=== PATIENT | female | born 1960 | race Caucasian/White ===

== ENCOUNTER → 2016-04-30 | Outpatient (CLI) | payer OTHER | LOC: WI 08:59 | PROVIDERS: ATTEND Orthopaedic Surgery | DX: Z13.820 Encounter for screening for osteoporosis (principal); M85.88 Other specified disorders of bone density and structure, other site | CPT/HCPCS: 77080 ==

== ENCOUNTER 2016-07-02 09:03 | Emergency (ER) | payer OTHER ==
[2016-07-02] MEDS ORDERED: MORPHINE SULFATE 10 MG/ML INJ IV ONE ×3 (09:39→15:13)
--- NOTE | 2016-07-02 09:39 | ER Document Report ---
ED Medical Screen (RME) - General Chief Complaint: Flank Pain Stated Complaint: FLANK PAIN Time Seen by Provider: 07/02/16 09:26 Notes: The patient is a 56-year-old female, past medical history two 10 mm stones in right kidney s/p nephrostomy tube at [facility] last month for septic stones, presents with increasing right flank pain over the past day. Continues to have yellow urine out of her nephrostomy bag. Received 5 mg oxycodone at [facility] SYSTEM ADMINISTRATION ADVISOR. PE: NAD. Nephrostomy bag with yellow urine. Right CVA tenderness. I have greeted and performed a rapid initial assessment of this patient. A comprehensive ED assessment and evaluation of the patient, analysis of test results and completion of the medical decision making process will be conducted by additional ED providers. TRAVEL OUTSIDE OF THE [place] IN LAST 30 DAYS: No - Related Data Allergies/Adverse Reactions: codeine [Codeine] Allergy (Verified 07/02/16 09:11) Nausea Past Medical History - Past Medical History Cardiac Medical History: Denies: Hx Coronary Artery Disease, Hx Heart Attack, Hx Hypertension Pulmonary Medical History: Denies: Hx Asthma, Hx Bronchitis, Hx COPD, Hx Pneumonia, Hx Tuberculosis Neurological Medical History: Reports: Hx Migraine. Denies: Hx Cerebrovascular Accident, Hx Seizures Renal/ Medical History: Denies: Hx Peritoneal Dialysis GI Medical History: Reports: Hx Gastroesophageal Reflux Disease Musculoskeltal Medical History: Reports Hx Arthritis Psychiatric Medical History: Reports: Hx Anxiety, Hx Depression Past Surgical History: Reports: Hx Orthopedic Surgery - left elbow x2. Denies: Hx Hysterectomy - Immunizations Immunizations up to date: Yes Hx Diphtheria, Pertussis, Tetanus Vaccination: Yes Physical Exam - Vital signs Vitals: Temp Pulse Resp BP Pulse Ox 98.0 F 70 18 133/54 H 98 07/02/16 09:13 07/02/16 09:13 07/02/16 09:13 07/02/16 09:13 07/02/16 09:13 Course - Vital Signs Vital signs: Temp Pulse Resp BP Pulse Ox 98.0 F 70 18 133/54 H 98 07/02/16 09:13 07/02/16 09:13 07/02/16 09:13 07/02/16 09:13 07/02/16 09:13
--- NOTE | 2016-07-02 10:30 | ER Document Report ---
ED GI/ - General Mode of Arrival: Ambulatory Information source: Patient, [facility] Records, Outside Facility Records TRAVEL OUTSIDE OF THE [place] IN LAST 30 DAYS: No - HPI Patient complains to provider of: Flank pain - Right Onset: This morning - 0230 Timing/Duration: Sudden, Worse Location: Right flank Recently seen / treated by doctor: Yes - Nina <MARCIO PATEL - Last Filed: 07/02/16 10:19> <CONI HOLLINGSWORTH - Last Filed: 07/02/16 20:43> - General Chief Complaint: Flank Pain Stated Complaint: FLANK PAIN Time Seen by Provider: 07/02/16 09:26 Notes: Patient is a 56-year-old female presenting to the emergency department with concerns of right flank pain that woke her from her sleep at 0230 this morning. Patient was recently admitted to [facility] ([place]) with a distal right ureteral stone, from which she developed pylonephritis and became septic. Patient spent one week in the ICU, and was discharged to [facility] for rehabilitation. Patient states that since arriving at [facility] three weeks ago, the staff has only changed the dressing over her nephrostomy tube one time. Patient states that this pain is very severe, but feels more towards the surface rather than deep inside her kidney. Patient states that she is going to have surgery soon, but waiting on "something with ." (MARCIO PATEL) - Related Data Allergies/Adverse Reactions: codeine [Codeine] Allergy (Verified 07/02/16 09:11) Nausea Past Medical History - General Information source: Patient, [facility] Records, Outside Facility Records - Social History Smoking Status: Current Every Day Smoker - Currently on nicotine patch secondary to staying in rehab facility [facility] Family History: Reviewed & Not Pertinent, Malignancy Patient has suicidal ideation: No Patient has homicidal ideation: No Neurological Medical History: Reports: Hx Migraine GI Medical History: Reports: Hx Gastroesophageal Reflux Disease Musculoskeltal Medical History: Reports Hx Arthritis Psychiatric Medical History: Reports: Hx Anxiety, Hx Depression Past Surgical History: Reports: Hx Orthopedic Surgery - left elbow x2, Other - Nephrostomy tube - Immunizations Immunizations up to date: Yes Hx Diphtheria, Pertussis, Tetanus Vaccination: Yes <MARCIO PATEL - Last Filed: 07/02/16 10:19> Review of Systems - Review of Systems Constitutional: No symptoms reported EENT: No symptoms reported Cardiovascular: No symptoms reported Respiratory: No symptoms reported Gastrointestinal: No symptoms reported Genitourinary: See HPI, Flank pain - Right Female Genitourinary: No symptoms reported Musculoskeletal: No symptoms reported Skin: No symptoms reported Hematologic/Lymphatic: No symptoms reported Neurological/Psychological: No symptoms reported <MARCIO PATEL - Last Filed: 07/02/16 10:19> Physical Exam - General General appearance: Alert - Tearful, uncomfortable In distress: None - HEENT Head: Normocephalic, Atraumatic Eyes: Normal Pupils: PERRL - Respiratory Respiratory status: No respiratory distress Chest status: Nontender Breath sounds: Normal Chest palpation: Normal - Cardiovascular Rhythm: Regular Heart sounds: Normal auscultation Murmur: No - Abdominal Inspection: Normal Distension: No distension Tenderness: Nontender - Back Back: Other - See skin exam - Extremities General upper extremity: Normal inspection, Nontender General lower extremity: Normal inspection, Nontender - Neurological Neuro grossly intact: Yes Cognition: Normal Orientation: AAOx4 [place] Coma Scale Eye Opening: Spontaneous Alireza Coma Scale Verbal: Oriented [place] Coma Scale Motor: Obeys Commands Alireza Coma Scale Total: 15 Speech: Normal - Psychological Associated symptoms: Normal affect, Tearful - Skin Skin Temperature: Warm Skin Moisture: Dry Skin irregularity: other - Thick, whitaker pus draining out around right nephrostomy tube. Gentle pressure resulted in a significant amount of pus flow. <MARCIO PATEL - Last Filed: 07/02/16 10:19> Course <MARCIO PATEL - Last Filed: 07/02/16 10:19> - Laboratory Result Diagrams: 07/02/16 11:22 07/02/16 11:22 - Diagnostic Test Radiology reviewed: Image reviewed, Reports reviewed - Right Perinephric abscess extending into the iliopsoas muscle. - Consults Dr. Barcenas Time consulted: 14:00 Consulted provider: other - Is requesting the hospitalist service accept the patient at [facility] and he will consult. - Transfer of Care Care transferred to following provider: Dr. Abdi <CONI HOLLINGSWORTH - Last Filed: 07/02/16 20:43> - Re-evaluation Re-evalutation: 07/02/16 15: Patient was accepted by the hospitalist service at [facility]. Presently there are no beds available. (CONI HOLLINGSWORTH) - Vital Signs Vital signs: Temp Pulse Resp BP Pulse Ox 97.8 F 53 L 16 93/52 L 100 07/02/16 18:25 07/02/16 18:25 07/02/16 18:25 07/02/16 18:25 07/02/16 18:25 - Laboratory Laboratory results interpreted by me: 07/02/16 07/02/16 07/02/16 10:57 11:22 11:22 WBC 11.7 H RBC 3.14 L Hgb 9.2 L Hct 28.1 L RDW 17.7 H Absolute Neutrophils 9.0 H Est GFR (Non-Af Amer) 55 L AST 12 L Albumin 3.2 L Urine Protein 100 H Urine Blood SMALL H Ur Leukocyte Esterase LARGE H - Transfer of Care Notes: 07/02/16 20:41 Patient is waiting on transfer to [facility]. Most recent update is that she will have a room assignment by early tomorrow afternoon. Orders for pain management, antibiotics, and diet have been put in. The patient should be considered for percutaneous drainage of her abscess here tomorrow if the transfer is going to be delayed any further than the current time provided. (CONI HOLLINGSWORTH) Discharge <MARCIO PATEL - Last Filed: 07/02/16 10:19> <CONI HOLLINGSWORTH - Last Filed: 07/02/16 20:43> - Discharge Clinical Impression: Perinephric abscess Condition: Stable Disposition: [facility] Referrals: LAURA TORRES MD [Primary Care Provider] - Follow up as needed Scribe Attestation: 07/02/16 14:47 I personally performed the services described in the documentation, reviewed and edited the documentation which was dictated to the scribe in my presence, and it accurately records my words and actions. (CONI HOLLINGSWORTH) Scribe Documentation - Scribe Written by Harithaibe:: Toño Mak, 07/02/2016 1031 acting as scribe for :: Sarah <MARCIO PATEL - Last Filed: 07/02/16 10:19>
[2016-07-02 11:29] LABS: ABSOLUTE BASOPHILS # (AUTO) 0.1 10^3/uL (0.0-0.2); ABSOLUTE EOSINOPHILS # (AUTO) 0.2 10^3/uL (0.0-0.6); ABSOLUTE LYMPHOCYTES (AUTO) 1.7 10^3/uL (0.5-4.7); ABSOLUTE MONOCYTES (AUTO) 0.7 10^3/uL (0.1-1.4); BASOPHILS % (AUTO) 0.5 % (0-2); EOSINOPHILS % (AUTO) 1.4 % (0-6); HEMATOCRIT 28.1 % (36.0-47.0); HEMOGLOBIN 9.2 g/dL (12.0-15.5); HGB HCT DIFFERENCE -0.5; LYMPHOCYTES % (AUTO) 14.9 % (13-45); MEAN CORPUSCULAR HEMOGLOBIN 29.2 pg (27.0-33.4); MEAN CORPUSCULAR HGB CONC 32.6 g/dL (32.0-36.0); MEAN CORPUSCULAR VOLUME 89 fl (80-97); MONOCYTES % (AUTO) 6.3 % (3-13); RED BLOOD COUNT 3.14 10^6/uL (3.72-5.28); RED CELL DISTRIBUTION WIDTH 17.7 % (11.5-14.0); SEGMENTED NEUTROPHILS % (AUTO) 76.9 % (42-78); WHITE BLOOD COUNT 11.7 10^3/uL (4.0-10.5)
[2016-07-02 11:46] LABS: ALANINE AMINOTRANSFERASE 20 U/L (9-52); ALBUMIN 3.2 g/dL (3.5-5.0); ALKALINE PHOSPHATASE 89 U/L (38-126); ANION GAP 8 (5-19); ASPARTATE AMINO TRANSFERASE 12 U/L (14-36); BILIRUBIN,DIRECT 0.4 mg/dL (0.0-0.4); BILIRUBIN,TOTAL 0.4 mg/dL (0.2-1.3); BLOOD UREA NITROGEN 10 mg/dL (7-20); CALCIUM 8.9 mg/dL (8.4-10.2); CARBON DIOXIDE 25 mmol/L (22-30); CHLORIDE 106 mmol/L (98-107); CREATININE RESULT 1.03 mg/dL (0.52-1.25); GLUCOSE 88 mg/dL (75-110); LIPASE 53.6 U/L (23-300); POTASSIUM 3.8 mmol/L (3.6-5.0); SODIUM 138.9 mmol/L (137-145); TOTAL PROTEIN 6.7 g/dL (6.3-8.2)
[2016-07-02] MEDS ORDERED: ERTAPENEM SODIUM INJ 1 GM VIAL IV ONE (13:19)
[2016-07-02] MEDS ORDERED: NORMAL SALINE 1000 ML 1,000 ML IV ONE (13:19)
--- NOTE | 2016-07-02 13:30 | RADIOLOGY REPORT (SQ) ---
EXAM DESCRIPTION: CT ABD/PELVIS WITH IV ONLY COMPLETED DATE/TIME: 07/02/2016 12:48 pm REASON FOR STUDY: pus drainage around the nephrostomy tube COMPARISON: 04/06/2014 TECHNIQUE: CT scan of the abdomen and pelvis performed using helical scanning technique with dynamic intravenous contrast injection. No oral contrast. Images reviewed with lung, soft tissue, and bone windows. Reconstructed coronal and sagittal MPR images reviewed. Delayed images for evaluation of the urinary system also acquired. All images stored on PACS. All CT scanners at this facility use dose modulation, iterative reconstruction, and/or weight based d osing when appropriate to reduce radiation dose to as low as reasonably achievable (ALARA). [facility]: Dose Right [facility]: CareDose [facility]: Dose Right [facility]: Teradose 4D [facility]: [employer] CONTRAST TYPE AND DOSE: 63mL Isovue 370 RENAL FUNCTION: BUN 10, creatinine 1.03 RADIATION DOSE: 10.12mGy. LIMITATIONS: None. FINDINGS: LOWER CHEST: There is minimal linear atelectasis in the lung bases. No consolidation or e ffusions. LIVER: Normal size. No masses or dilated ducts. SPLEEN: Normal size. No focal lesions. PANCREAS: No masses. No significant calcifications. No adjacent inflammation or peripancreatic fluid collections. Pancreatic duct not dilated. GALLBLADDER: Gallbladder is slightly distended. No stones or wall thickening. ADRENAL GLANDS: No significant masses or asymmetry. RIGHT KIDNEY AND URETER: There is a nephrostomy tube in the right kidney. No hydronephrosis. Ther e are small perinephric fluid collections suspicious for abscess. The largest measures 3.0 x 1.6 cm and extends into the left ileo psoas muscle. The smaller collection measures 1.7 cm 1.7 x 2.1 cm. T here calcifications in both the upper and lower pole the right kidney grossly stable from prior exam. LEFT KIDNEY AND URETER: No solid masses. There is a small simple cyst. No significant calcificatio ns. No hydronephrosis or hydroureter. AORTA AND VESSELS: No aneurysm. No dissection. Renal arteries, SMA, celiac without stenosis. RETROPERITONEUM: There are small periaortic lymph nodes. These are most likely reactive. BOWEL AND PERITONEAL CAVITY: No masses or inflammatory changes. No free fluid or peritoneal masses. APPENDIX: Normal. PELVIS: There is free fluid in the cul-de-sac. ABDOMINAL WALL: No masses. No hernias. BONES: No significant or acute findings. OTHER: No other significant finding. IMPRESSION: Inflammatory changes surrounding the right kidney suspicious for perinephric abscess. 1 extends into the right ileopsoas muscle. The largest collection measures 3.0 x 1.6 cm in diameter. Right-sided percutaneous nephrostomy tube is in place. There is no hydronephrosis. COMMENT: This report was called to CONI HOLLINGSWORTH MD at13:24 on 07/02/2016. TECHNICAL DOCUMENTATION: JOB ID: [id number] Quality ID # [id number]: Final reports with documentation of one or more dose reduction techniques (e.g., Au tomated exposure control, adjustment of the mA and/or kV according to patient size, use of iterative reconstruction technique) 2010 [employer]- All Rights Reserved
[2016-07-02 13:58] LABS: AMORPHOUS SEDIMENT,URINE TRACE /HPF; APPEARANCE,URINE TURBID; BILIRUBIN,URINE NEGATIVE (NEGATIVE); GLUCOSE, URINE NEGATIVE (NEGATIVE); KETONES,URINE NEGATIVE (NEGATIVE); LEUKOCYTE ESTERASE,URINE LARGE (NEGATIVE); NITRITE,URINE NEGATIVE (NEGATIVE); PROTEIN,URINE 100 mg/dL (NEGATIVE); URINE SPECIFIC GRAVITY 1.006; UROBILINOGEN,URINE NEGATIVE mg/dL (<2.0)
[2016-07-02] MEDS: MORPHINE SULFATE 10 MG/ML INJ IV PRN ×2 (18:05→21:16)
[2016-07-02] MEDS ORDERED: NICOTINE 21 MG/24 HR PATCH.TD24 TD ONE (19:28)
[2016-07-03] MEDS: MORPHINE SULFATE 10 MG/ML INJ IV PRN ×8 (01:11→22:44)
[2016-07-03] MEDS: NORMAL SALINE 1000 ML 1,000 ML IV PRN ×3 (03:31→21:21)
[2016-07-03] MEDS ORDERED: ALPRAZOLAM 0.5 MG TABLET PO ONE ×2 (07:25→16:34)
[2016-07-03] MEDS ORDERED: ERTAPENEM SODIUM INJ 1 GM VIAL IV ONE ×2 (13:15→13:30)
--- NOTE | 2016-07-03 20:05 | ER Document Report ---
Doctor's Note Notes: 07/03/16 20:03 Pt seen. Awaiting transport to [facility]. Requesting her home dose of Xanax. Pain under control and pt is HD stable. Will continue to monitor.
[2016-07-03] MEDS ORDERED: NICOTINE 21 MG/24 HR PATCH.TD24 TD SCH (21:30)
[2016-07-04 05:23] VITALS: BP 122/54
== END 2016-07-03 23:30 | disposition short-term general hospital (02) ==
LOC: ER 09:03
DX: N15.1 Renal and perinephric abscess (principal); R10.9 Unspecified abdominal pain; F17.200 Nicotine dependence, unspecified, uncomplicated; K21.9 Gastro-esophageal reflux disease without esophagitis; Z88.6 Allergy status to analgesic agent; Z93.6 Other artificial openings of urinary tract status; Z98.890 Other specified postprocedural states
CPT/HCPCS: 96376; 99285; 96374; 96375; 36415; 87040; 87086; 87070; 83690; 85025; 87075; 87077; 87088; 80053; 81001; 87186; 74177; J1335; J2270 ×2; J7030 ×2

== ENCOUNTER → 2016-08-01 | Outpatient (CLI) | payer OTHER ==
--- NOTE | 2016-08-01 11:58 | RADIOLOGY REPORT (SQ) ---
EXAM DESCRIPTION: CT ABD/PELVIS WITH IV ONLY COMPLETED DATE/TIME: 08/01/2016 9:51 am REASON FOR STUDY: RENAL AND PERINEPHRIC ABSCESS N15.1 RENAL AND PERINEPHRIC ABSCESS COMPARISON: CT chest 11/19/2012 Abdominal ultrasound 04/06/2014 CT abdomen pelvis 04/06/2014, 07/02/2016 Hepatobiliary scan 04/14/2014 TECHNIQUE: CT scan of the abdomen and pelvis performed using helical scanning technique with dynamic intravenous contrast injection. No oral contrast. Images reviewed with lung, soft tissue, and bone windows. Reconstructed coronal and sagittal MPR images reviewed. Delayed images for evaluation of the urinary system also acquired. All images stored on PACS. All CT scanners at this facility use dose modulation, iterative reconstruction, and/or weight based d osing when appropriate to reduce radiation dose to as low as reasonably achievable (ALARA). [facility]: Dose Right [facility]: CareDose [facility]: Dose Right [facility]: Teradose 4D [facility]: [employer] CONTRAST TYPE AND DOSE: contrast/concentration: Isovue 370.00 mg/ml; Total Contrast Delivered: 58.0 ml; Total Saline Delivered: 65.0 ml RENAL FUNCTION: Creatinine 1.0 RADIATION DOSE: Up-to-date CT equipment and radiation dose reduction techniques were employed. CTDIv ol: 3.3 - 3.9 mGy. DLP: 330 mGy-cm.. LIMITATIONS: None. FINDINGS: LOWER CHEST: No significant findings. No nodules or infiltrates. LIVER: Normal size. No masses or dilated ducts. SPLEEN: Normal size. No focal lesions. PANCREAS: No masses. No significant calcifications. No adjacent inflammation or peripancreatic fluid collections. Pancreatic duct not dilated. GALLBLADDER: No identified stones by CT criteria. No inflammatory changes to suggest cholecystitis. ADRENAL GLANDS: No significant masses or asymmetry. RIGHT KIDNEY AND URETER: Diffusely small right kidney with cortical thinning, overall 7.6 cm in linda th. No solid masses. Coarse dense benign appearing 12 mm calcification right upper pole kidney unc hanged. Stable right lower pole 7 to 8 mm intrarenal nonobstructive stone No hydronephrosis or hyd roureter. Right-sided double-J stent in good positioning. LEFT KIDNEY AND URETER: No solid masses. No significant calcifications. No hydronephrosis or hydr oureter. AORTA AND VESSELS: No aneurysm. No dissection. Renal arteries, SMA, celiac without stenosis. RETROPERITONEUM: No retroperitoneal adenopathy, hemorrhage or masses. BOWEL AND PERITONEAL CAVITY: No masses or inflammatory changes. No free fluid or peritoneal masses. Large amount of stool in the ascending and transverse colon APPENDIX: Normal. PELVIS: No mass or free fluid. Normal bladder. Post hysterectomy. Streak artifact through the pelvi s from right hip replacement ABDOMINAL WALL: No masses. No hernias. BONES: Right total hip replacement OTHER: No other significant finding. IMPRESSION: No CT evidence of right perinephric abscess or intrarenal abscess. Small right kidney, with right double-J stent in good positioning and stable calcifications in the right upper and lower pole kidney. TECHNICAL DOCUMENTATION: JOB ID: [id number] Quality ID # [id number]: Final reports with documentation of one or more dose reduction techniques (e.g., Au tomated exposure control, adjustment of the mA and/or kV according to patient size, use of iterative reconstruction technique) 2010 [employer]- All Rights Reserved
== END ==
LOC: RAD 09:19
PROVIDERS: ATTEND Physician Assistant
DX: N15.1 Renal and perinephric abscess (principal)
CPT/HCPCS: 74177; J1642

== ENCOUNTER 2016-10-15 08:05 | Emergency (ER) | payer OTHER ==
[2016-10-15 08:11] VITALS: BP 134/74
--- NOTE | 2016-10-15 08:51 | ER Document Report ---
HPI - HPI Pain Level: 4 Notes: Patient is a 56-year-old female who presents the ED complaining of acute on chronic left shoulder pain status post injury while working out 3 days ago. Patient states that the pain stays in the shoulder and does not radiate. The pain is described as sharp. Patient states that she did have a fracture to the left shoulder, but "did not get it fixed because a surgeon did not want to work on her as she is a smoker." Patient states that she did have typical range of motion and was working out when she felt the pain started. Patient now has difficulties with flexion and abduction. Patient states that her arm feels a little weak as well. She has not had any neck pain. She still eating and drinking without any difficulties. Patient has been using ibuprofen with minimal relief. Denies any headache, fever, head injury, neck pain, URI, sore throat, chest pain, palpitations, syncope, cough, shortness of breath, wheeze, dyspnea, abdominal pain, nausea/vomiting/diarrhea, urinary retention, dysuria, hematuria, numbness/tingling, or rash. - ROS Notes: REVIEW OF SYSTEMS: CONSTITUTIONAL : Denies fever, chills, or sweats. Denies recent illness. EENT: Denies eye, ear, throat, or mouth pain or symptoms. Denies nasal or sinus congestion or discharge. Denies throat, tongue, or mouth swelling or difficulty swallowing. CARDIOVASCULAR: Denies chest pain. Denies palpitations or racing or irregular heart beat. Denies ankle edema. RESPIRATORY: Denies cough, cold, or chest congestion. Denies shortness of breath, difficulty breathing, or wheezing. GASTROINTESTINAL: Denies abdominal pain or distention. Denies nausea, vomiting , or diarrhea. Denies blood in vomitus, stools, or per rectum. Denies black, tarry stools. Denies constipation. GENITOURINARY: Denies difficulty urinating, painful urination, burning, frequency, blood in urine, or discharge. MUSCULOSKELETAL: see hpi SKIN: Denies rash, lesions or sores. NEUROLOGICAL: Denies confusion or altered mental status. Denies passing out or loss of consciousness. Denies dizziness or lightheadedness. Denies headache. Denies weakness or paralysis or loss of use of either side. Denies problems with gait or speech. Denies sensory loss, numbness, or tingling. ALL OTHER SYSTEMS REVIEWED AND NEGATIVE. Dictation was performed using [employer] voice recognition software - CARDIOVASCULAR Cardiovascular: DENIES: Chest pain - REPRODUCTIVE Reproductive: DENIES: : - DERM Skin Color: Normal Past Medical History - Social History Smoking Status: Current Every Day Smoker Chew tobacco use (# tins/day): No Frequency of alcohol use: None Drug Abuse: None Family History: Reviewed & Not Pertinent, Malignancy Patient has suicidal ideation: No Patient has homicidal ideation: No - Past Medical History Cardiac Medical History: Denies: Hx Coronary Artery Disease, Hx Heart Attack, Hx Hypertension Pulmonary Medical History: Denies: Hx Asthma, Hx Bronchitis, Hx COPD, Hx Pneumonia, Hx Tuberculosis Neurological Medical History: Reports: Hx Migraine. Denies: Hx Cerebrovascular Accident, Hx Seizures Renal/ Medical History: Denies: Hx Peritoneal Dialysis GI Medical History: Reports: Hx Gastroesophageal Reflux Disease Musculoskeltal Medical History: Reports Hx Arthritis Psychiatric Medical History: Reports: Hx Anxiety, Hx Depression Past Surgical History: Reports: Hx Orthopedic Surgery - left elbow x2, Other - Nephrostomy tube. Denies: Hx Hysterectomy - Immunizations Immunizations up to date: Yes Hx Diphtheria, Pertussis, Tetanus Vaccination: Yes Vertical Provider Document - CONSTITUTIONAL Agree With Documented VS: Yes Notes: PHYSICAL EXAMINATION: GENERAL: Well-appearing, well-nourished and in no acute distress. HEAD: Atraumatic, normocephalic. NECK: Normal range of motion, supple without lymphadenopathy. Non-tender. No rigidity. LUNGS: Breath sounds clear to auscultation bilaterally and equal. No wheezes rales or rhonchi. HEART: Regular rate and rhythm without murmurs, rubs, gallops. Musculoskeletal: Lt shoulder: FROM to passive. LROM to active. Strength 4+/5. Pt unable to abduct/flex on her on. + deformity noted to what looks like the clavicle (consistent w. history). + tenderness to the shoulder. N/v intact distal. Pulse 2+. No obvious ecchymosis, abrasion, laceration, or swelling noted. Extremities: No cyanosis, clubbing, or edema b/l. Peripheral pulses 2+. Capillary refill less than 3 seconds. NEUROLOGICAL: Normal speech, normal gait. Normal sensory, motor exams PSYCH: Normal mood, normal affect. SKIN: Warm, Dry, normal turgor, no rashes or lesions noted. - INFECTION CONTROL TRAVEL OUTSIDE OF THE [place] IN LAST 30 DAYS: No - RESPIRATORY O2 Sat by Pulse Oximetry: 96 Course - Re-evaluation Re-evalutation: 10/15/16 09:38 Patient is an afebrile, well-hydrated, 56-year-old female who presents the ED with left shoulder pain, suspect sprain/strain based on H&P today. Vitals are stable. PE otherwise unremarkable. XR unremarkable for acute pathology. Low suspicion/risk for any tendon rupture, neurovascular compromise, septic joint, sepsis, meningitis, disc herniation causing severe spinal stenosis, or acute fracture. Patient is aware that her condition can change from initial presentation and she needs to monitor symptoms closely and seek medical attention if any acute changes. Patient requesting narcotics. Advised that narcotics are not warranted for her current condition. I offered Toradol, ice/ heat, Tylenol/ibuprofen. Patient declined and walked out AMA with risks/ benefits understood. I was planning on sending her home with a sling, the patient left prematurely. I did tell the patient that she needs to recheck with her PCM and orthopedics f or further evaluation if there is no acute emergent pathology today. Patient is to return with any worsening/concerning symptoms otherwise as reviewed. - Vital Signs Vital signs: Temp Pulse Resp BP Pulse Ox 97.7 F 83 18 134/74 H 96 10/15/16 08:08 10/15/16 08:08 10/15/16 08:08 10/15/16 08:08 10/15/16 08:08 Discharge - Discharge Clinical Impression: Left shoulder pain Qualifiers: Chronicity: acute Qualified Code(s): M25.512 - Pain in left shoulder Condition: Stable Disposition: [facility] Instructions: Ice & Elevation ([facility]), Exercise Program for the Shoulder ([facility]), Shoulder Injury ([facility]), Sling as Treatment ([facility]), Warm Packs ([facility]) Additional Instructions: Rest, Ice, Compression, Elevation Use sling as directed Tylenol/ibuprofen as needed Light stretches daily Strength exercises as able Moist heat and massage may help F/u with your PCP in 2-3 days for a recheck Consider consult(s) with Orthopedics/physical therapy for ongoing/worsening symptoms Return to the ED with any worsening symptoms and/or development of fever, headache, chest pain, palpitations, syncope, shortness of breath, trouble breathing, abdominal pain, n/v/d, muscle weakness/paralysis, numbness/tingling, swelling, redness, or other worsening symptoms that are concerning to you. Forms: Elevated Blood Pressure, Smoking Cessation Education Referrals: [facility] [Provider Group] - Follow up as needed
--- NOTE | 2016-10-15 09:34 | RADIOLOGY REPORT (SQ) ---
EXAM DESCRIPTION: SHOULDER LEFT 2 OR MORE VIEWS COMPLETED DATE/TIME: 10/15/2016 9:25 am REASON FOR STUDY: left shoulder pain, h/o prev fracture COMPARISON: None. NUMBER OF VIEWS: Three views. TECHNIQUE: Internal rotation, external rotation, and Y view images acquired of the left shoulder. LIMITATIONS: None. FINDINGS: MINERALIZATION: Normal. BONES: There is a moderately displaced ununited left distal clavicle fracture compatible with history of prior fracture. Bones otherwise intact without acute injury identified. JOINTS: No dislocation. VISUALIZED LUNGS AND RIBS: No pneumothorax. No rib fracture. SOFT TISSUES: No radiopaque foreign body. OTHER: No other significant finding. IMPRESSION: CHRONIC UNUNITED LEFT DISTAL CLAVICLE FRACTURE ABOVE. NO ACUTE FINDINGS. TECHNICAL DOCUMENTATION: JOB ID: [id number] [employer]- All Rights Reserved
== END 2016-10-15 09:30 | disposition left against medical advice (07) ==
LOC: ER 08:05
DX: M25.512 Pain in left shoulder (principal); R53.1 Weakness; F17.200 Nicotine dependence, unspecified, uncomplicated; Z53.29 Procedure and treatment not carried out because of patient's decision for other reasons
CPT/HCPCS: 99283

== ENCOUNTER → 2016-11-14 | Outpatient (CLI) | payer OTHER ==
--- NOTE | 2016-11-15 09:55 | RADIOLOGY REPORT (SQ) ---
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 TECHNIQUE: Dynamic and static felipe-scale images acquired of the thyroid gland. Selected additional c olor/power Doppler images recorded. All images stored to PACS. LIMITATIONS: None. FINDINGS: Right lobe thyroid is 4.5 x 2.0 x 1.4 cm in size. Homogeneous echogenicity. Normal color flow. Incidental finding of an 8 mm an 11 mm nodule in the right lobe thyroid which should be follo wed with repeat ultrasound in 12 months. Left lobe thyroid is 4.4 x 2.1 x 1.9 cm in size. Incidental finding of a 3 mm nodule in the left mid pole thyroid which should be followed with ultrasound in 12 months. Normal thyroid isthmus thickness, 2 mm in thickness. IMPRESSION: Less than 1.5 cm bilateral thyroid nodules which are probably benign, 1 year follow-up r ecommended. TECHNICAL DOCUMENTATION: JOB ID: [id number] [employer]- All Rights Reserved
== END ==
LOC: RAD 16:33
PROVIDERS: ATTEND Family Medicine
DX: E01.0 Iodine-deficiency related diffuse (endemic) goiter (principal)
CPT/HCPCS: 76536

== ENCOUNTER → 2016-11-20 | Outpatient (CLI) | payer OTHER ==
--- NOTE | 2016-11-20 17:13 | WOMENS IMAGING REPORT ---
EXAM DESCRIPTION: BILAT SCREENING MAMMO W/CAD COMPLETED DATE/TIME: 11/20/2016 2:52 pm REASON FOR STUDY: ROUTINE SCREENING; Z12.31 Z12.31 ENCNTR SCREEN MAMMOGRAM FOR MALIGNANT NEOPLASM O F JESSICA COMPARISON: 2009 to 2015 TECHNIQUE: Standard craniocaudal and mediolateral oblique views of each breast recorded using CAISa l acquisition. LIMITATIONS: None. FINDINGS: RIGHT BREAST MASSES: No suspicious masses. CALCIFICATIONS: No new or suspicious calcifications. ARCHITECTURAL DISTORTION: None. DEVELOPING DENSITY: None. ASYMMETRY: None noted. OTHER: No other significant findings. LEFT BREAST MASSES: Mass in the left breast measuring 8 mm slightly irregular superior and either medial or later al as there are 2 densities in the breast on the CC view which could represent a mass. CALCIFICATIONS: No new or suspicious calcifications. ARCHITECTURAL DISTORTION: None. DEVELOPING DENSITY: None. ASYMMETRY: None noted. OTHER: No other significant findings. Read with the assistance of CAD. .[facility] - R2 Cenova Version 1.3 .[facility] Imaging - R2 Cenova Version 1.3 .[facility] Imaging - R2 Cenova Version 2.4 .[facility] - R2 Cenova Version 2.4 .[facility] - R2 Pants Presser Version 9.2 IMPRESSION: New mass in the left breast BREAST DENSITY: c. The breasts are heterogeneously dense, which may obscure small masses. BIRAD: 0 Incomplete: Needs Additional Imaging Evaluation and/or prior Mammograms for Comparison. RECOMMENDATION: RECOMMENDED FOLLOW-UP: Spot compression and ultrasound. The patient will be contacted for additional imaging. COMMENT: The patient has been notified of the results by letter per SA requirements. Additional no tification policies are in place for contacting patient with suspicious or incomplete findings. Quality ID #225: The [employer] recommends an annual screening mammogram for women aged 40 years or over. This facility utilizes a reminder system to ensure that all patients receive reminder letters, and/or direct phone calls for appointments. This includes reminders for routine scr eening mammograms, diagnostic mammograms, or other Breast Imaging Interventions when appropriate. Th is patient will be placed in the appropriate reminder system. The [employer] (ACR) has developed recommendations for screening MRI of the breast s in certain patient populations, to be used in conjunction with mammography. Breast MRI surveillanc e may be appropriate for women with more than 20% lifetime risk of developing breast cancer as deter mined by genetic testing, significant family history of the disease, or history of mantle radiation f or Hodgkins Disease. ACR Practice Guidelines 2008. TECHNICAL DOCUMENTATION: FINDING NUMBER: (1) ASSESSMENT: (1) JOB ID: [id number] [employer]- All Rights Reserved
== END ==
LOC: WI 14:18
PROVIDERS: ATTEND Family Medicine
DX: Z12.31 Encounter for screening mammogram for malignant neoplasm of breast (principal)
CPT/HCPCS: 77067; G0202

== ENCOUNTER → 2017-01-21 | Outpatient (CLI) | payer OTHER ==
--- NOTE | 2017-01-21 19:09 | WOMENS IMAGING REPORT ---
EXAM DESCRIPTION: U/S BREAST UNILAT LIMITED COMPLETED DATE/TIME: 01/21/2017 12:59 pm REASON FOR STUDY: ABSCESS OF R BREAST; N61.1 N61.1 ABSCESS OF THE BREAST AND NIPPLE COMPARISON: Bilateral mammograms 11/20/2016, 09/20/2015 Right breast ultrasound 09/20/2015 TECHNIQUE: Real-time and static grayscale imaging performed of the right breast targeted to the area of clinical concern. Selected color Doppler images recorded. LIMITATIONS: None. FINDINGS: MASS: No mass identified. Normal glandular tissue. OTHER: No other significant finding. No abscess or focal fluid collection. IMPRESSION: No suspicious findings detected by ultrasound. BIRAD: 1 Negative. RECOMMENDATION: RECOMMENDED FOLLOW-UP: Follow-up as clinically indicated. COMMENT: The [employer] (ACR) has developed recommendations for screening MRI of the breasts in certain patient populations, to be used in conjunction with mammography. Breast MRI s urveillance may be appropriate for women with more than 20% lifetime risk of developing breast cancer as determined by genetic testing, significant family history of the disease, or history of mantle r adiation for Hodgkins Disease. ACR Practice Guidelines 2008. TECHNICAL DOCUMENTATION: JOB ID: [id number] [employer]- All Rights Reserved
== END ==
LOC: WI 10:43
PROVIDERS: ATTEND Family Medicine
DX: N61.1 Abscess of the breast and nipple (principal)
CPT/HCPCS: 76642

== ENCOUNTER → 2017-12-26 | Outpatient (CLI) | payer OTHER ==
--- NOTE | 2017-12-26 14:29 | WOMENS IMAGING REPORT ---
EXAM DESCRIPTION: BILAT DIAGNOSTIC MAMMO W/CAD COMPLETED DATE/TIME: 12/26/2017 8:20 am REASON FOR STUDY: BREAST LUMP N63.0 UNSPECIFIED LUMP IN UNSPECIFIED BREAST COMPARISON: Multiple since 2009 TECHNIQUE: Standard craniocaudal and mediolateral oblique views of each breast recorded using digita l acquisition. Additional bilateral 90 mediolateral views were obtained. LIMITATIONS: None. FINDINGS: RIGHT BREAST MASSES: No suspicious masses. CALCIFICATIONS: No new or suspicious calcifications. Stable benign breast calcifications. ARCHITECTURAL DISTORTION: None. DEVELOPING DENSITY: None. ASYMMETRY: None noted. OTHER: No other significant findings. LEFT BREAST MASSES: No suspicious masses. CALCIFICATIONS: No new or suspicious calcifications. Stable benign breast calcifications. ARCHITECTURAL DISTORTION: None. DEVELOPING DENSITY: None. ASYMMETRY: None noted. OTHER: No other significant finding. Read with the assistance of CAD: .[facility] - R2 Cenova Version 1.3 .[facility] Imaging - R2 Cenova Version 1.3 .[facility] Imaging - R2 Cenova Version 2.4 .[facility] - R2 Cenova Version 2.4 .[facility] - R2 Backend Python Developer Version 9.2 IMPRESSION: No mammographic evidence for malignancy bilaterally BREAST DENSITY: c. The breasts are heterogeneously dense, which may obscure small masses. BIRAD: 2 Benign findings. RECOMMENDATION: RECOMMENDED FOLLOW UP: Please continue yearly bilateral screening mammography/ tomos ynthesis in December 2018 SPECIFIC INTERVENTION/IMAGING/CONSULTATION RECOMMENDED:No additional intervention/ imaging/consultati on needed at this time. COMMUNICATION:Patient notified by letter COMMENT: The patient has been notified of the results by letter per SA requirements. Additional no tification policies are in place for contacting patient with suspicious or incomplete findings. Quality ID #[id number]: The [employer] recommends an annual screening mammogram for women aged 40 years or over. This facility utilizes a reminder system to ensure that all patients receive reminder letters, and/or direct phone calls for appointments. This includes reminders for routine scr eening mammograms, diagnostic mammograms, or other Breast Imaging Interventions when appropriate. Th is patient will be placed in the appropriate reminder system. The [employer] (ACR) has developed recommendations for screening MRI of the breast s in certain patient populations, to be used in conjunction with mammography. Breast MRI surveillanc e may be appropriate for women with more than 20% lifetime risk of developing breast cancer as deter mined by genetic testing, significant family history of the disease, or history of mantle radiation f or Hodgkins Disease. ACR Practice Guidelines 2008. TECHNICAL DOCUMENTATION: FINDING NUMBER: (1) ASSESSMENT: (1) JOB ID: [id number] [employer]- All Rights Reserved Reading location - IP/workstation name: [facility]
== END ==
LOC: WI 07:32
PROVIDERS: ATTEND Family Medicine
DX: N63.0 Unspecified lump in unspecified breast (principal)
CPT/HCPCS: 77066

== ENCOUNTER → 2018-03-18 | Outpatient (CLI) | payer OTHER ==
--- NOTE | 2018-03-20 15:09 | WOMENS IMAGING REPORT ---
EXAM DESCRIPTION: U/S BREAST UNILAT LIMITED; RIGHT DIAGNOSTIC MAMMO W/CAD COMPLETED DATE/TIME: 03/18/2018 10:44 am; 03/18/2018 10:07 am REASON FOR STUDY: RT BREAST ABSCESS N61.1; N61.1 ABSCESS OF THE BREAST AND NIPPLE N61.1 ABSCESS OF THE BREAST AND NIPPLE COMPARISON: Multiple previous mammograms, most recently 12/26/2017 Right breast ultrasound 01/21/2017 TECHNIQUE: Right breast craniocaudad, 90 mediolateral view and MLO view, right breast ultrasound we re performed today for an inverted right nipple LIMITATIONS: None. FINDINGS: RIGHT BREAST MASSES: No suspicious masses. CALCIFICATIONS: No new or suspicious calcifications. ARCHITECTURAL DISTORTION: None. DEVELOPING DENSITY: None. ASYMMETRY: None noted. OTHER: No other significant findings. Right breast ultrasound: Ultrasound of the right breast. Retroareolar region was performed. Within the skin of the right nip ple, 12 o'clock position immediately deep to the skin surface a 5 mm hypoechoic nodule is present lik yo a dermal inclusion cyst. No increased color flow. No worrisome acoustic absorption. No dilated ducts in the retroareolar region. No solid masses. No worrisome acoustic absorption. IMPRESSION: No mammographic or sonographic evidence for malignancy right breast. 5 mm hypoechoic lesion in the skin, likely a dermal inclusion cyst BREAST DENSITY: b. There are scattered areas of fibroglandular density. BIRAD: 2 Benign findings. RECOMMENDATION: RECOMMENDED FOLLOW UP: Clinical follow-up for skin lesion. Otherwise, patient is du e for bilateral screening mammography in December 2018 SPECIFIC INTERVENTION/IMAGING/CONSULTATION RECOMMENDED:Clinical followup for skin lesion COMMUNICATION:The negative/benign results were communicated to the patient. COMMENT: The patient has been notified of the results by letter per MQSA requirements. Additional no tification policies are in place for contacting patient with suspicious or incomplete findings. Quality ID #[id number]: The [employer] recommends an annual screening mammogram for women aged 40 years or over. This facility utilizes a reminder system to ensure that all patients receive reminder letters, and/or direct phone calls for appointments. This includes reminders for routine scr eening mammograms, diagnostic mammograms, or other Breast Imaging Interventions when appropriate. Th is patient will be placed in the appropriate reminder system. The [employer] (ACR) has developed recommendations for screening MRI of the breast s in certain patient populations, to be used in conjunction with mammography. Breast MRI surveillanc e may be appropriate for women with more than 20% lifetime risk of developing breast cancer as deter mined by genetic testing, significant family history of the disease, or history of mantle radiation f or Hodgkins Disease. ACR Practice Guidelines 2008. TECHNICAL DOCUMENTATION: FINDING NUMBER: (1) ASSESSMENT: (1) JOB ID: [id number] [employer]- All Rights Reserved Reading location - IP/workstation name: BE[facility]
== END ==
LOC: WI 09:31
PROVIDERS: ATTEND Family Medicine
DX: N61.1 Abscess of the breast and nipple (principal); N60.01 Solitary cyst of right breast
CPT/HCPCS: 76642

== ENCOUNTER 2018-06-24 08:27 | Emergency (ER) | payer OTHER ==
--- NOTE | 2018-06-24 09:50 | ER Document Report ---
ED General - General Chief Complaint: Post Surgical Pain Stated Complaint: POST OP PAIN Time Seen by Provider: 06/24/18 09:49 Primary Care Provider: LAURA TORRES MD [Primary Care Provider] - Follow up as needed TRAVEL OUTSIDE OF THE [place] IN LAST 30 DAYS: No - HPI Notes: Right breast pain 4/10 burning in nature without radiation nothing makes it better or worse. Patient had an abscess drained from her right breast approximately 10 days ago. Patient states her surgeon only gave her 10 pain pills 1 to take each day. She says this is not enough. She has multiple allergies to multiple pain medications can only tolerate Fioricet. This also helps her chronic migraines. Patient denies fever chills lymphadenopathy weakness or fatigue. - Related Data Allergies/Adverse Reactions: codeine [Codeine] Allergy (Verified 06/24/18 08:29) Nausea, Emesis Past Medical History - Social History Smoking Status: Current Every Day Smoker Chew tobacco use (# tins/day): No Frequency of alcohol use: None Drug Abuse: None Family History: Reviewed & Not Pertinent, Malignancy Patient has suicidal ideation: No Patient has homicidal ideation: No - Past Medical History Cardiac Medical History: Denies: Hx Coronary Artery Disease, Hx Heart Attack, Hx Hypertension Pulmonary Medical History: Denies: Hx Asthma, Hx Bronchitis, Hx COPD, Hx Pneumonia, Hx Tuberculosis Neurological Medical History: Reports: Hx Migraine. Denies: Hx Cerebrovascular Accident, Hx Seizures Renal/ Medical History: Denies: Hx Peritoneal Dialysis GI Medical History: Reports: Hx Gastroesophageal Reflux Disease Musculoskeletal Medical History: Denies Hx Arthritis Psychiatric Medical History: Reports: Hx Anxiety, Hx Depression Past Surgical History: Reports: Hx Orthopedic Surgery - left elbow x2, Right hip replacement, Other - Nephrostomy tube. Denies: Hx Hysterectomy - Immunizations Immunizations up to date: Yes Hx Diphtheria, Pertussis, Tetanus Vaccination: Yes Review of Systems - Review of Systems Notes: REVIEW OF SYSTEMS: CONSTITUTIONAL: -fevers, -chills EENT: -eye pain, -difficulty swallowing, -nasal congestion CARDIOVASCULAR: -chest pain, -syncope. RESPIRATORY: -cough, -SOB GASTROINTESTINAL: -abdominal pain, -nausea, -vomiting, -diarrhea GENITOURINARY: -dysuria, -hematuria MUSCULOSKELETAL: -back pain, -neck pain SKIN: -rash or skin lesions. HEMATOLOGIC: -easy bruising or bleeding. LYMPHATIC: -swollen, enlarged glands. NEUROLOGICAL: -altered mental status or loss of consciousness, -headache, - neurologic symptoms PSYCHIATRIC: -anxiety, -depression. ALL OTHER SYSTEMS REVIEWED AND NEGATIVE. Physical Exam - Vital signs Vitals: Temp Pulse Resp BP Pulse Ox 98.9 F 86 18 138/73 H 98 06/24/18 08:43 06/24/18 08:43 06/24/18 08:43 06/24/18 08:43 06/24/18 08:43 - Notes Notes: PHYSICAL EXAMINATION: GENERAL: Well-appearing, well-nourished and in no acute distress. HEAD: Atraumatic, normocephalic. EYES: Pupils equal round and reactive to light, extraocular movements intact, sclera anicteric, conjunctiva are normal. ENT: nares patent, oropharynx clear without exudates. Moist mucous membranes. NECK: Normal range of motion, supple without lymphadenopathy LUNGS: Breath sounds clear to auscultation bilaterally and equal. No wheezes rales or rhonchi. HEART: Regular rate and rhythm without murmurs ABDOMEN: Soft, nontender, normoactive bowel sounds. No guarding, no rebound. No masses appreciated. EXTREMITIES: Normal range of motion, no pitting or edema. No cyanosis. NEUROLOGICAL: Cranial nerves grossly intact. Normal speech, normal gait. Normal sensory and motor exams. PSYCH: Normal mood, normal affect. SKIN: Recent incision site in the 12 o'clock position of right area Aura, no fluctuance noted area of redness is probably 1 cm once in the past no lymphadenopathy. Relatively benign exam Course - Re-evaluation Re-evalutation: 06/24/18 10:03 Patient has been in the department approximately 1 hour. She states she is going to leave. She only came for pain medicine. Afebrile female stable vitals within normal limits. Will initiate antibiotic therapy of Bactrim we will give short course pain medication recommend follow-up at surgeon. 06/24/18 10:04 Patient not willing to stay for blood work or additional evaluation - Vital Signs Vital signs: Temp Pulse Resp BP Pulse Ox 98.9 F 86 18 138/73 H 98 06/24/18 08:43 06/24/18 08:43 06/24/18 08:43 06/24/18 08:43 06/24/18 08:43 Discharge - Discharge Clinical Impression: Breast pain, right Condition: Stable Disposition: HOME, SELF-CARE Instructions: Cellulitis ([facility]) Additional Instructions: Call Surgeon who did your breast surgery Prescriptions: Butalb/Acetaminophen/Caffeine [Fioricet (50-325-40 mg) Tablet] 1 - 2 tab PO Q4H #20 tab Sulfamethoxazole/Trimethoprim [Bactrim 400-80 mg Tablet] 1 each PO BID #14 tablet Referrals: LAURA TORRES MD [Primary Care Provider] - Follow up as needed
[2018-06-24 10:15] VITALS: BP 134/77
== END 2018-06-24 10:15 | disposition home or self-care (01) ==
LOC: ER 08:27
DX: N64.4 Mastodynia (principal); G89.18 Other acute postprocedural pain; F17.200 Nicotine dependence, unspecified, uncomplicated; Z88.6 Allergy status to analgesic agent; Z96.641 Presence of right artificial hip joint
CPT/HCPCS: 99283

== ENCOUNTER 2019-02-02 10:55 | Emergency (ER) | payer OTHER ==
[2019-02-02] MEDS ORDERED: KETOROLAC TROMETHAMINE INJ/PF 30 MG/1 ML SDV IV ONE (11:04)
[2019-02-02] MEDS ORDERED: ONDANSETRON HCL INJ/PF 4 MG/2 ML SDV IV ONE (11:05)
--- NOTE | 2019-02-02 11:05 | ER Document Report ---
ED Medical Screen (RME) - General Chief Complaint: Flank Pain Stated Complaint: RIGHT FLANK PAIN Time Seen by Provider: 02/02/19 10:59 Primary Care Provider: LAURA TORRES MD [Primary Care Provider] - Follow up as needed Mode of Arrival: Ambulatory Information source: Patient Notes: Patient presents complaining of right low back pain for the past week. Patient states she has been voiding only very small amounts. Patient denies any fever but does complain of some nausea and vomiting. Patient does have a history of kidney stones with stenting. I have greeted and performed a rapid initial assessment of this patient. A comprehensive ED assessment and evaluation of the patient, analysis of test results and completion of the medical decision making process will be conducted by additional ED providers. TRAVEL OUTSIDE OF THE [place] IN LAST 30 DAYS: No - Related Data Allergies/Adverse Reactions: codeine [Codeine] Allergy (Verified 02/02/19 10:59) Nausea, Emesis Home Medications: Xanax Past Medical History - Past Medical History Cardiac Medical History: Denies: Hx Coronary Artery Disease, Hx Heart Attack, Hx Hypertension Pulmonary Medical History: Denies: Hx Asthma, Hx Bronchitis, Hx COPD, Hx Pneumonia, Hx Tuberculosis Neurological Medical History: Reports: Hx Migraine. Denies: Hx Cerebrovascular Accident, Hx Seizures Renal/ Medical History: Denies: Hx Peritoneal Dialysis GI Medical History: Reports: Hx Gastroesophageal Reflux Disease Musculoskeltal Medical History: Denies Hx Arthritis Psychiatric Medical History: Reports: Hx Anxiety, Hx Depression Past Surgical History: Reports: Hx Orthopedic Surgery - left elbow x2, Right hip replacement, Other - Nephrostomy tube. Denies: Hx Hysterectomy - Immunizations Immunizations up to date: Yes Hx Diphtheria, Pertussis, Tetanus Vaccination: Yes Physical Exam - Vital signs Vitals: Temp Pulse Resp BP Pulse Ox 97.5 F 96 18 148/77 H 96 02/02/19 11:00 02/02/19 11:00 02/02/19 11:00 02/02/19 11:00 02/02/19 11:00 - Back Back: CVA tenderness - Right Course - Vital Signs Vital signs: Temp Pulse Resp BP Pulse Ox 97.5 F 96 18 148/77 H 96 02/02/19 11:00 02/02/19 11:00 02/02/19 11:00 02/02/19 11:02/02/19 11:00 Doctor's Discharge - Discharge Referrals: LAURA TORRES MD [Primary Care Provider] - Follow up as needed
[2019-02-02 11:53] LABS: APPEARANCE,URINE CLEAR; BILIRUBIN,URINE NEGATIVE (NEGATIVE); COLOR,URINE YELLOW; GLUCOSE, URINE NEGATIVE (NEGATIVE); KETONES,URINE NEGATIVE (NEGATIVE); LEUKOCYTE ESTERASE,URINE TRACE (NEGATIVE); NITRITE,URINE NEGATIVE (NEGATIVE); PROTEIN,URINE NEGATIVE (NEGATIVE); URINE SPECIFIC GRAVITY 1.013; UROBILINOGEN,URINE NEGATIVE mg/dL (<2.0)
[2019-02-02 12:08] LABS: ABSOLUTE BASOPHILS # (AUTO) 0.1 10^3/uL (0.0-0.2); ABSOLUTE EOSINOPHILS # (AUTO) 0.2 10^3/uL (0.0-0.6); ABSOLUTE LYMPHOCYTES (AUTO) 1.9 10^3/uL (0.5-4.7); ABSOLUTE MONOCYTES (AUTO) 0.8 10^3/uL (0.1-1.4); EOSINOPHILS % (AUTO) 2.5 % (0-6); HEMATOCRIT 40.6 % (36.0-47.0); HEMOGLOBIN 13.8 g/dL (12.0-15.5); LYMPHOCYTES % (AUTO) 24.1 % (13-45); MEAN CORPUSCULAR HGB CONC 33.9 g/dL (32.0-36.0); MEAN CORPUSCULAR VOLUME 92 fl (80-97); MONOCYTES % (AUTO) 10.4 % (3-13); PLATELET COUNT 263 10^3/uL (150-450); RED BLOOD COUNT 4.44 10^6/uL (3.72-5.28); TOTAL CELLS COUNTED % (AUTO) 100 %; WHITE BLOOD COUNT 8.1 10^3/uL (4.0-10.5)
--- NOTE | 2019-02-02 12:14 | ER Document Report ---
ED General - General Chief Complaint: Back Pain Stated Complaint: RIGHT FLANK PAIN Time Seen by Provider: 02/02/19 10:59 Primary Care Provider: LAURA TORRES MD [Primary Care Provider] - Follow up as needed Mode of Arrival: Ambulatory TRAVEL OUTSIDE OF THE [place] IN LAST 30 DAYS: No - Related Data Allergies/Adverse Reactions: codeine [Codeine] Allergy (Verified 02/02/19 10:59) Nausea, Emesis Home Medications: Xanax Past Medical History - General Information source: Patient - Social History Smoking Status: Current Every Day Smoker Family History: Reviewed & Not Pertinent, Malignancy Patient has suicidal ideation: No Patient has homicidal ideation: No - Past Medical History Cardiac Medical History: Denies: Hx Coronary Artery Disease, Hx Heart Attack, Hx Hypertension Pulmonary Medical History: Denies: Hx Asthma, Hx Bronchitis, Hx COPD, Hx Pneumonia, Hx Tuberculosis Neurological Medical History: Reports: Hx Migraine. Denies: Hx Cerebrovascular Accident, Hx Seizures Renal/ Medical History: Denies: Hx Peritoneal Dialysis GI Medical History: Reports: Hx Gastroesophageal Reflux Disease Musculoskeletal Medical History: Denies Hx Arthritis Psychiatric Medical History: Reports: Hx Anxiety, Hx Depression Past Surgical History: Reports: Hx Orthopedic Surgery - left elbow x2, Right hip replacement, Other - Nephrostomy tube. Denies: Hx Hysterectomy - Immunizations Immunizations up to date: Yes Hx Diphtheria, Pertussis, Tetanus Vaccination: Yes Physical Exam - Vital signs Vitals: Temp Pulse Resp BP Pulse Ox 97.5 F 96 18 148/77 H 96 02/02/19 11:00 02/02/19 11:00 02/02/19 11:00 02/02/19 11:00 02/02/19 11:00 - Notes Notes: Patient presents emergency department planing of right flank pain is been gone for the past 5 days. Him on gradually. Will intermittently radiate across her back but does not radiate into her abdomen. She cannot really tell me if the pain is similar to her previous kidney stone. She has had no trauma or falls. The pain does seem to change little bit when she turns from side to side but not when she sits up. She is had a little bit of nausea and vomiting with this which is been controlled with a friend. He has had no fevers chest pain or shortness of breath. She denies any numbness or weakness in the lower extremities no loss of bowel bladder function. She does report some urgency and frequency for the past several days but no hematuria Past medical history significant for kidney stones with a stent a couple years ago. She saw her urologist in November and was told she still has a stone 1 of her kidneys she has no diabetes or hypertension Has a history of anxiety and migraines Social history smokes does not drink. Review of systems pertinent positives and negatives in HPI otherwise all the systems were reviewed and acutely negative PHYSICIAN EXAM -vital signs are noted triage note and note from triage reviewed GENERAL: Well-appearing, well-nourished and in _mild DISstress HEAD: Atraumatic, normocephalic. EYES: Pupils equal round and reactive to light, extraocular movements intact, sclera anicteric, conjunctiva are normal. ENT: nares patent, oropharynx clear without exudates. Moist mucous membranes. NECK: supple without lymphadenopathy LUNGS: Breath sounds clear to auscultation bilaterally and equal. No wheezes rales or rhonchi. HEART: Regular rate and rhythm without murmurs ABDOMEN: Soft, nontender, normoactive bowel sounds. There is no pulsatile masses. Good femoral pulses no radial femoral delay EXTREMITIES: No deformity, no edema. NEUROLOGICAL: No focal neurological deficits. Moves all extremities spontaneo usly and on command. Motor strength is 5/5 in the lower extremities and no pain with straight leg raise PSYCH: Normal mood, normal affect. SKIN: Warm, Dry, normal turgor, no rashes or lesions noted. BACK-nontender in the midline she has some minimal discomfort with sitting she does have some CVA tenderness on the right that extends to the paravertebral area that increases slightly with turning from side to side Differential diagnosis includes back strain kidney stone pyelonephritis Course - Re-evaluation Re-evalutation: 02/02/19 13:56 ED patient remained stable she was given ketorolac for 7 no relief and then given morphine. He is now she is resting comfortably Medical decision-making patient presents with lower back pain and dysuria. She has no is of a kidney stone right now. Urine shows only minimal infection and she has symptoms of a UTI. There is noted to suggest pyelonephritis and I think the back pain appears to be more musculoskeletal. She looks well and at this point I think she be discharged home. Discussed the findings with patient she is requesting narcotic pain medicine. Given ketorolac but she says that does not work advised her that I was hesitant to give a narcotic in light of the fact she is on high doses of Xanax that she has no stone. Told her about her kidney function she said that her family doctor did blood work out recently and was told that her kidney functions were slightly elevated. Plan at this point going discharge home [place] already will put her on Omnicef avoid complications with the fluoroquinolones. She is to rest and drink plenty of fluids follow-up with family doctor to 3 days if not better otherwise in 2 weeks to recheck her urine Dictation was done using voice recognition software. There may be some grammatical errors which are unintentional I discussed results of laboratory findings and diagnostic test with patient/family. The treatment plan was explained and I reviewed the discharge instructions with them. Questions were answered. The patient/family verbalizes understanding - Vital Signs Vital signs: Temp Pulse Resp BP Pulse Ox 97.5 F 96 18 148/77 H 96 02/02/19 11:00 02/02/19 11:00 02/02/19 11:00 02/02/19 11:00 02/02/19 11:00 - Laboratory Result Diagrams: 02/02/19 11:36 02/02/19 11:36 Laboratory results interpreted by me: 02/02/19 02/02/19 02/02/19 11:24 11:36 11:36 RDW 18.0 H BUN 25 H Est GFR ( Amer) 54 L Est GFR (MDRD) Non-Af 45 L Ur Leukocyte Esterase TRACE H - Diagnostic Test Radiology reviewed: Reports reviewed Discharge - Discharge Clinical Impression: Back strain UTI (urinary tract infection) Qualifiers: Urinary tract infection type: acute cystitis Condition: Good Disposition: HOME, SELF-CARE Instructions: Low Back Pain ([facility]), Urinary Tract Infection ([facility]) Additional Instructions: Please review the discharge instructions, they will tell you about your disease/injury and what you need to return to the ED for Return to the ED if you feel worse or can follow-up with your family doctor Rest and drink plenty of fluids You can take Tylenol for your back pain Follow-up with your family doctor in 2 to 3 days if not better otherwise in 2 weeks Prescriptions: Cefdinir [Omnicef 300 mg Capsule] 1 cap PO BID #14 capsule Referrals: LAURA TORRES MD [Primary Care Provider] - Follow up as needed (2 to 3 days if not better otherwise in 2 weeks)
[2019-02-02 12:23] LABS: ALBUMIN 4.4 g/dL (3.5-5.0); ALKALINE PHOSPHATASE 69 U/L (38-126); ANION GAP 9 (5-19); ASPARTATE AMINO TRANSFERASE 21 U/L (14-36); BILIRUBIN,DIRECT 0.2 mg/dL (0.0-0.4); BILIRUBIN,TOTAL 0.5 mg/dL (0.2-1.3); BLOOD UREA NITROGEN 25 mg/dL (7-20); CALCIUM 9.7 mg/dL (8.4-10.2); CARBON DIOXIDE 28 mmol/L (22-30); CHLORIDE 104 mmol/L (98-107); GLUCOSE 79 mg/dL (75-110); POTASSIUM 4.1 mmol/L (3.6-5.0); TOTAL PROTEIN 7.9 g/dL (6.3-8.2)
--- NOTE | 2019-02-02 12:24 | RADIOLOGY REPORT (SQ) ---
EXAM DESCRIPTION: CT ABD/PELVIS NO ORAL OR IV COMPLETED DATE/TIME: 02/02/2019 11:57 am REASON FOR STUDY: flank pain, hx stones COMPARISON: 04/06/2014 TECHNIQUE: CT scan of the abdomen and pelvis performed without intravenous or oral contrast. Images reviewed with lung, soft tissue, and bone windows. Reconstructed coronal and sagittal MPR images revi ewed. All images stored on PACS. All CT scanners at this facility use dose modulation, iterative reconstruction, and/or weight based d osing when appropriate to reduce radiation dose to as low as reasonably achievable (ALARA). [facility]: Dose Right [facility]: CareDose [facility]: Dose Right [facility]: Teradose 4D [facility]: Smart Farm[employer] RADIATION DOSE: CT Rad equipment meets quality standard of care and radiation dose reduction techniq ues were employed. CTDIvol: 6.0 mGy. DLP: 300 mGy-cm.mGy. LIMITATIONS: None. FINDINGS: LOWER CHEST: No significant findings. No nodules or infiltrates. NON-CONTRASTED LIVER, SPLEEN, ADRENALS: Evaluation limited by lack of IV contrast. No identified sign ificant masses. PANCREAS: No masses. No peripancreatic inflammatory changes. GALLBLADDER: No identified stones by CT criteria. No inflammatory changes to suggest cholecystitis. RIGHT KIDNEY AND URETER: Significant renal atrophy with associated renal calcifications. No hydronep hrosis. LEFT KIDNEY AND URETER: No suspicious masses. Assessment limited by lack of IV contrast. 8 mm lower calyceal calculus. No hydronephrosis or hydroureter. AORTA AND RETROPERITONEUM: No aneurysm. Aortoiliac atherosclerosis. BOWEL AND PERITONEAL CAVITY: No obvious masses or inflammatory changes. No free fluid. APPENDIX: Normal. PELVIS, BLADDER, AND ABDOMINAL WALL:Limited evaluation because of artifact from right hip arthroplast y. No obvious pelvic mass. No free fluid. BONES: No significant findings. OTHER: No other significant finding. IMPRESSION: Right renal atrophy with associated cortical calcifications. No hydronephrosis. No ure teral calculus. Nonobstructing left renal calculus. COMMENT: Quality ID # [id number]: Final reports with documentation of one or more dose reduction techniques (e.g., Automated exposure control, adjustment of the mA and/or kV according to patient size, use of iterative reconstruction technique) TECHNICAL DOCUMENTATION: JOB ID: [id number]- All Rights Reserved Reading location - IP/workstation name: [email or web address]
[2019-02-02] MEDS ORDERED: MORPHINE SULFATE 10 MG/ML INJ IV ONE (12:44)
[2019-02-02] MEDS ORDERED: CEFPODOXIME 200 MG TABLET PO ONE (14:01)
[2019-02-02 14:26] VITALS: BP 118/56
== END 2019-02-02 14:28 | disposition home or self-care (01) ==
LOC: ER 10:55
DX: S39.012A Strain of muscle, fascia and tendon of lower back, initial encounter (principal); N30.00 Acute cystitis without hematuria; M54.9 Dorsalgia, unspecified; R10.9 Unspecified abdominal pain; X58.XXXA Exposure to other specified factors, initial encounter; F17.200 Nicotine dependence, unspecified, uncomplicated; Z87.442 Personal history of urinary calculi
CPT/HCPCS: 99284; 96374; 96375; 36415; 85025; 80053; 81001; 74176; J1885; J2270; J2405

== ENCOUNTER → 2019-02-06 | Outpatient (CLI) | payer OTHER ==
--- NOTE | 2019-02-09 17:07 | WOMENS IMAGING REPORT ---
EXAM DESCRIPTION: BILAT SCREENING MAMMO W/CAD COMPLETED DATE/TIME: 02/06/2019 8:35 am REASON FOR STUDY: Z12.31 ENCOUNTER FOR SCREENING MAMMOGRAM FOR MALIGNANT NEOPLASM OF BREAST Z12.31 ENCNTR SCREEN MAMMOGRAM FOR MALIGNANT NEOPLASM OF JESSICA COMPARISON: 12/26/2017 and 11/20/2016. EXAM PARAMETERS: Standard craniocaudal and mediolateral oblique views of each breast recorded using digital acquisition. Read with the assistance of CAD. .[facility] - R2 Beading Machine Operator Version 9.2 LIMITATIONS: None. FINDINGS: Findings present which are benign by mammographic criteria. No suspicious masses, calcifi cations or architectural distortion. Pertinent benign findings: Benign calcifications. Benign mammographic findings may include one or more of the following: Smooth masses, popcorn/rim/co arse calcifications, asymmetries, post-procedure changes, and lesions with long-standing stability. IMPRESSION: BENIGN MAMMOGRAPHIC FINDINGS. BIRADS 2 BREAST DENSITY: c. The breasts are heterogeneously dense, which may obscure small masses. BIRAD: ASSESSMENT: 2 BENIGN FINDING(S) RECOMMENDATION: ROUTINE SCREENING COMMENT: The patient has been notified of the results by letter per SA requirements. Additional no tification policies are in place for contacting patient with suspicious or incomplete findings. Quality ID #[id number]: The [employer] recommends an annual screening mammogram for women aged 40 years or over. This facility utilizes a reminder system to ensure that all patients receive reminder letters, and/or direct phone calls for appointments. This includes reminders for routine scr eening mammograms, diagnostic mammograms, or other Breast Imaging Interventions when appropriate. Th is patient will be placed in the appropriate reminder system. TECHNICAL DOCUMENTATION: FINDING NUMBER: (1) ASSESSMENT: (1) JOB ID: [id number] [employer]- All Rights Reserved Reading location - IP/workstation name: [email or web address]
== END ==
LOC: WI 08:11
PROVIDERS: ATTEND Family Medicine
DX: Z12.31 Encounter for screening mammogram for malignant neoplasm of breast (principal)
CPT/HCPCS: 77067

== ENCOUNTER 2019-05-24 22:56 | Emergency (ER) | payer OTHER ==
[2019-05-24 23:12] VITALS: BP 110/69
--- NOTE | 2019-05-25 00:48 | ER Document Report ---
ED General - General Chief Complaint: Ear Pain Stated Complaint: EAR ACHE Time Seen by Provider: 05/25/19 00:46 Primary Care Provider: LAURA TORRES MD [Primary Care Provider] - Follow up as needed Mode of Arrival: Ambulatory Information source: Patient Notes: 59-year-old female arrives by POV with her driving with chief complaint of 1 month history of left otalgia. Patient reports she has had 2 courses of antibiotics by mouth amoxicillin and another type of antibiotic dose twice a day. Patient request something for pain as well. She says her pain is 8 out of 10. Her personal doctor is in [place] Dr. Torres and he has been seeing her in writing her prescriptions for her left earache for 1 month.. TRAVEL OUTSIDE OF THE [place] IN LAST 30 DAYS: No - HPI Onset: Other - 1 month Onset/Duration: Persistent Quality of pain: Achy Severity: Severe Pain Level: 4 Associated symptoms: Earache Exacerbated by: Denies Relieved by: Denies Similar symptoms previously: Yes Recently seen / treated by doctor: Yes - Related Data Allergies/Adverse Reactions: codeine [Codeine] Allergy (Verified 02/02/19 10:59) Nausea, Emesis Past Medical History - General Information source: Patient - Social History Smoking Status: Current Every Day Smoker Cigarette use (# per day): No Chew tobacco use (# tins/day): No Smoking Education Provided: No Frequency of alcohol use: None Drug Abuse: None Lives with: Family Family History: Reviewed & Not Pertinent, Malignancy Patient has suicidal ideation: No Patient has homicidal ideation: No - Past Medical History Cardiac Medical History: Denies: Hx Coronary Artery Disease, Hx Heart Attack, Hx Hypertension Pulmonary Medical History: Denies: Hx Asthma, Hx Bronchitis, Hx COPD, Hx Pneumonia, Hx Tuberculosis Neurological Medical History: Reports: Hx Migraine. Denies: Hx Cerebrovascular Accident, Hx Seizures Renal/ Medical History: Denies: Hx Peritoneal Dialysis GI Medical History: Reports: Hx Gastroesophageal Reflux Disease Musculoskeletal Medical History: Denies Hx Arthritis Psychiatric Medical History: Reports: Hx Anxiety, Hx Depression Past Surgical History: Reports: Hx Orthopedic Surgery - left elbow x2, Right hip replacement, Other - Nephrostomy tube. Denies: Hx Hysterectomy - Immunizations Immunizations up to date: Yes Hx Diphtheria, Pertussis, Tetanus Vaccination: Yes Review of Systems - Review of Systems Constitutional: See HPI, Weakness EENT: See HPI, Ear pain Cardiovascular: No symptoms reported Respiratory: No symptoms reported Gastrointestinal: No symptoms reported Genitourinary: No symptoms reported Female Genitourinary: No symptoms reported Musculoskeletal: No symptoms reported Skin: No symptoms reported Hematologic/Lymphatic: No symptoms reported Neurological/Psychological: No symptoms reported Physical Exam - Vital signs Vitals: Temp Pulse Resp BP Pulse Ox 97.8 F 82 16 110/69 96 05/24/19 23:07 05/24/19 23:07 05/24/19 23:07 05/24/19 23:07 05/24/19 23:07 Interpretation: Normal - General General appearance: Alert - HEENT Head: Normocephalic Eyes: Normal Conjunctiva: Normal Cornea: Normal Extraocular movements intact: Yes Eyelashes: Normal Ears: Normal - except for left ext and int ear pain External canal: Other - Tender to palpation on auricle of left ear Tympanic membrane: Normal - on right ; left TM unable to visualize b/o edema to left canal Hearing loss: Left Sinus: Normal Nasal: Normal Mouth/Lips: Normal Mucous membranes: Normal Pharynx: Normal Neck: Normal - Respiratory Respiratory status: No respiratory distress Chest status: Nontender Breath sounds: Normal Chest palpation: Normal - Cardiovascular Rhythm: Regular Heart sounds: Normal auscultation Murmur: No Friction rub: No Ti's crunch: No - Abdominal Inspection: Normal Distension: No distension Bowel sounds: Normal Tenderness: Nontender Organomegaly: No organomegaly - Back Back: Normal - Extremities General upper extremity: Normal inspection General lower extremity: Normal inspection - Neurological Neuro grossly intact: Yes Cognition: Normal Orientation: AAOx4 Alireza Coma Scale Eye Opening: Spontaneous [place] Coma Scale Verbal: Oriented Alireza Coma Scale Motor: Obeys Commands Alireza Coma Scale Total: 15 Speech: Normal Cranial nerves: Normal Cerebellar coordination: Normal Motor strength normal: LUE, RUE, LLE, RLE - Psychological Associated symptoms: Normal affect - Skin Skin Temperature: Warm Skin Moisture: Dry Course - Vital Signs Vital signs: Temp Pulse Resp BP Pulse Ox 97.8 F 82 16 110/69 96 05/24/19 23:07 05/24/19 23:07 05/24/19 23:07 05/24/19 23:07 05/24/19 23:07 Critical Care Note - Critical Care Note Total time excluding time spent on procedures (mins): 60 Comments: Follow-up with personal doctor and with ENT ear nose throat doctor this week and take medicines as directed encourage fluids and apply eardrops as directed; patient was given Rocephin 1 g IM Decadron 10 IM and also [place] pack to go and Diflucan p.o. Discharge - Discharge Clinical Impression: Otitis externa Qualifiers: Otitis externa type: unspecified type Chronicity: unspecified Laterality: unspecified laterality Qualified Code(s): H60.90 - Unspecified otitis externa, unspecified ear Condition: Good Disposition: HOME, SELF-CARE Instructions: Use of Ear Drops ([facility]), Oral Narcotic Medication ([facility]) Additional Instructions: Follow-up with personal doctor return to ER as needed take medicines as directed encourage fluids; apply eardrops as directed; do not drive while using oral narcotics Prescriptions: Neomy Sulf/Polymyx B Sulf/Hc [Cortisporin Otic Susp] 2 drop LFT_EAR QID 7 Days #1 bottle Dexamethasone [Decadron 4 Mg Tablet] 4 mg PO BID #8 tablet Fluconazole [Diflucan] 100 mg PO DAILY #2 tablet Levofloxacin [Levaquin 500 mg Tablet] 500 mg PO DAILY #10 tablet Referrals: LAURA TORRES MD [Primary Care Provider] - Follow up as needed
[2019-05-25] MEDS ORDERED: HYDROCODONE/ACETAMINOPHEN 5-325 MG (6 TAB/ER DISP) PO PRN (00:56)
[2019-05-25] MEDS ORDERED: CEFTRIAXONE INJ 1000 MG VIAL IM ONE (00:57)
[2019-05-25] MEDS ORDERED: DEXAMETHASONE SOD PHOS INJ 10 MG/1 ML VIAL IM ONE (00:58)
[2019-05-25] MEDS ORDERED: FLUCONAZOLE 100 MG TABLET PO ONE (00:58)
[2019-05-25] MEDS ORDERED: PROMETHAZINE HCL INJ 25 MG/1 ML VIAL IM ONE (00:59)
== END 2019-05-25 01:29 | disposition home or self-care (01) ==
LOC: ER 22:56
DX: H60.90 Unspecified otitis externa, unspecified ear (principal); H92.02 Otalgia, left ear; R53.1 Weakness; F17.200 Nicotine dependence, unspecified, uncomplicated; Z88.6 Allergy status to analgesic agent; Z88.5 Allergy status to narcotic agent
CPT/HCPCS: 99284; 96372; J2550; J0696; J1100

== ENCOUNTER 2019-08-06 15:48 | Emergency (ER) | payer OTHER ==
[2019-08-06 18:45] VITALS: BP 154/69
[2019-08-06] MEDS ORDERED: METOCLOPRAMIDE HCL INJ/PF 10 MG/2 ML SDV IV ONE (19:04)
[2019-08-06] MEDS ORDERED: KETOROLAC TROMETHAMINE INJ/PF 30 MG/1 ML SDV IV ONE (19:04)
[2019-08-06] MEDS ORDERED: NORMAL SALINE 1000 ML 1,000 ML IV ONE (19:04)
[2019-08-06] MEDS ORDERED: DIPHENHYDRAMINE HCL 50 MG/ML VIAL IV ONE (19:04)
--- NOTE | 2019-08-06 19:08 | ER Document Report ---
ED General - General Chief Complaint: Vomiting Stated Complaint: HEADACHE,NAUSEA Primary Care Provider: LAURA TORRES MD [Primary Care Provider] - Follow up as needed Notes: Patient is a 59-year-old white female with history of anxiety, migraine headaches on Fioricet who is a current everyday smoker who presents to the emergency department with a chief complaint of headache for the past 3 days. She states it is a frontal headache. She states this is typical of her migraine headaches. She normally takes Fioricet but has not taken any for this headache. She states the pain does not radiate. She reports this is not the worst he adache of her life. It was gradual in onset. She reports that it is associated with nausea and vomiting. She also states that she has a cough but she feels this is in relation to her smoking and nothing out of the ordinary. She denies any recent travel or known sick contacts. Denies any fever or neck pain. No chest pain or shortness of breath. No abdominal pain or diarrhea. TRAVEL OUTSIDE OF THE [place] IN LAST 30 DAYS: No - Related Data Allergies/Adverse Reactions: codeine [Codeine] Allergy (Verified 02/02/19 10:59) Nausea, Emesis Home Medications: Zanax. Celexa. Seraquil. Fioricet Past Medical History - Social History Smoking Status: Current Every Day Smoker Chew tobacco use (# tins/day): No Frequency of alcohol use: None Drug Abuse: None Family History: Reviewed & Not Pertinent, Malignancy - Past Medical History Cardiac Medical History: Denies: Hx Coronary Artery Disease, Hx Heart Attack, Hx Hypertension Pulmonary Medical History: Denies: Hx Asthma, Hx Bronchitis, Hx COPD, Hx Pneumonia, Hx Tuberculosis Neurological Medical History: Reports: Hx Migraine. Denies: Hx Cerebrovascular Accident, Hx Seizures Renal/ Medical History: Denies: Hx Peritoneal Dialysis GI Medical History: Reports: Hx Gastroesophageal Reflux Disease Musculoskeletal Medical History: Denies Hx Arthritis Psychiatric Medical History: Reports: Hx Anxiety, Hx Depression Past Surgical History: Reports: Hx Orthopedic Surgery - left elbow x2, Right hip replacement, Other - Nephrostomy tube. Denies: Hx Hysterectomy - Immunizations Immunizations up to date: Yes Hx Diphtheria, Pertussis, Tetanus Vaccination: Yes Review of Systems - Review of Systems Gastrointestinal: Nausea, Vomiting Neurological/Psychological: Headaches -: Yes All other systems reviewed and negative Physical Exam - Vital signs Vitals: Temp Pulse Resp BP Pulse Ox 98.2 F 84 14 154/69 H 94 08/06/19 18:43 08/06/19 18:43 08/06/19 18:43 08/06/19 18:43 08/06/19 18:43 - General General appearance: Appears well, Alert In distress: Mild - HEENT Head: Normocephalic, Atraumatic Eyes: Normal Conjunctiva: Normal Extraocular movements intact: Yes Eyelashes: Normal Pupils: PERRL Ears: Normal External canal: Normal Tympanic membrane: Normal Nasal: Normal Mouth/Lips: Normal Pharynx: Normal Neck: Normal, Supple - Respiratory Respiratory status: No respiratory distress Chest status: Nontender Breath sounds: Normal Chest palpation: Normal - Cardiovascular Rhythm: Regular Heart sounds: Normal auscultation - Abdominal Inspection: Normal Distension: No distension Bowel sounds: Normal Tenderness: Nontender Organomegaly: No organomegaly - Extremities General upper extremity: Normal inspection, Nontender, Normal color, Normal ROM, Normal temperature General lower extremity: Normal inspection, Nontender, Normal color, Normal ROM, Normal temperature, Normal weight bearing. No: Von's sign - Neurological Neuro grossly intact: Yes Cognition: Normal Orientation: AAOx4 Alireza Coma Scale Eye Opening: Spontaneous Al[place]za Coma Scale Verbal: Oriented [place] Coma Scale Motor: Obeys Commands [place] Coma Scale Total: 15 Speech: Normal Cranial nerves: Normal. 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 No: Pronator drift Sensory: Normal - Psychological Associated symptoms: Agitated, Anxious - Skin Skin Temperature: Warm Skin Moisture: Dry Skin Color: Normal Course - Re-evaluation Re-evalutation: 08/06/19 20:30 Pending patient's laboratory studies at this time. Her chest x-ray is negative for acute process. I went in and reevaluated the patient at this time she is resting on her back in the bed, appears comfortable. She is watching TV. She is no longer hanging over the side of the stretcher vomiting into a bag. She appears much better than prior however states that she still nauseous and her headache is the same. She states that she like to does have a prescription for Benadryl and be discharged home. I discussed the risks of this decision with her at length. I recommended that she stay for full work-up and evaluation and to ensure resolution or improvement of her symptoms. 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 She states that she understands the risks including but not limited to sudden or permanent neurological disability but that she wishes to leave AGAINST MEDICAL ADVICE anyway. This point she is of sound mind and mental capacity to make informed decision. She is aware that she is free to return here at any time to continue her care. She will sign out AGAINST MEDICAL ADVICE. I have instructed her to follow-up with her regular doctor as soon as possible for reevaluation a nd continued care. I also advised that she return here or any ER immediately with any new, persistent or worsening symptoms. She verbalized understood and agreed. - Vital Signs Vital signs: Temp Pulse Resp BP Pulse Ox 98.2 F 84 14 154/69 H 94 08/06/19 18:43 08/06/19 18:43 08/06/19 18:43 08/06/19 18:43 08/06/19 18:43 - Laboratory Result Diagrams: 08/06/19 19:56 08/06/19 19:56 Laboratory results interpreted by me: 08/06/19 19:56 WBC 11.1 H RDW 19.2 H Discharge - Discharge Clinical Impression: Cephalalgia Qualifiers: Headache type: unspecified Headache chronicity pattern: unspecified pattern Intractability: intractable Qualified Code(s): R51 - Headache Nausea and vomiting Qualifiers: Vomiting type: unspecified Vomiting Intractability: unspecified Qualified Code(s): R11.2 - Nausea with vomiting, unspecified Condition: Stable Disposition: AGAINST MEDICAL ADVICE Instructions: Headache ([facility]), Nausea or Vomiting, Nonspecific ([facility]) Additional Instructions: You have elected to leave AGAINST MEDICAL ADVICE today despite risks discussed. He requested a prescription for Benadryl which we have given you. Please follow-up with your regular doctor soon as possible for continued evaluation and management. Please return here or any ER immediately with any new, persistent or worsening symptoms. Prescriptions: Diphenhydramine HCl [Benadryl 25 mg Capsule] 25 mg PO Q6 PRN #20 capsule PRN Reason: Referrals: LAURA TORRES MD [Primary Care Provider] - Follow up as needed
--- NOTE | 2019-08-06 19:52 | RADIOLOGY REPORT (SQ) ---
EXAM DESCRIPTION: CHEST SINGLE VIEW IMAGES COMPLETED DATE/TIME: 08/06/2019 7:42 pm REASON FOR STUDY: cough COMPARISON: 06/02/2018 EXAM PARAMETERS: NUMBER OF VIEWS: One view. TECHNIQUE: Single frontal radiographic view of the chest acquired. RADIATION DOSE: NA LIMITATIONS: None. FINDINGS: LUNGS AND PLEURA: No opacities, masses or pneumothorax. No pleural effusion. MEDIASTINUM AND HILAR STRUCTURES: No masses. Contour normal. HEART AND VASCULAR STRUCTURES: Heart normal in size. Normal vasculature. BONES: No acute findings. HARDWARE: None in the chest. OTHER: No other significant finding. IMPRESSION: NO ACUTE RADIOGRAPHIC FINDING IN THE CHEST. TECHNICAL DOCUMENTATION: JOB ID: [id number] 2010 [facility]- All Rights Reserved Reading location - IP/workstation name: [email or web address]
[2019-08-06 20:07] LABS: ABSOLUTE BASOPHILS # (AUTO) 0.1 10^3/uL (0.0-0.2); ABSOLUTE MONOCYTES (AUTO) 1.1 10^3/uL (0.1-1.4); ABSOLUTE NEUT (AUTO) 7.9 10^3/uL (1.7-8.2); BASOPHILS % (AUTO) 0.8 % (0-2); EOSINOPHILS % (AUTO) 0.3 % (0-6); HEMATOCRIT 45.5 % (36.0-47.0); LYMPHOCYTES % (AUTO) 17.8 % (13-45); MEAN CORPUSCULAR HEMOGLOBIN 31.1 pg (27.0-33.4); MEAN CORPUSCULAR HGB CONC 32.9 g/dL (32.0-36.0); MEAN CORPUSCULAR VOLUME 94 fl (80-97); MONOCYTES % (AUTO) 9.5 % (3-13); PLATELET COUNT 347 10^3/uL (150-450); RED BLOOD COUNT 4.82 10^6/uL (3.72-5.28); RED CELL DISTRIBUTION WIDTH 19.2 % (11.5-14.0); SEGMENTED NEUTROPHILS % (AUTO) 71.6 % (42-78); TOTAL CELLS COUNTED % (AUTO) 100 %; WHITE BLOOD COUNT 11.1 10^3/uL (4.0-10.5)
[2019-08-06 20:29] LABS: ALBUMIN 4.8 g/dL (3.5-5.0); ALKALINE PHOSPHATASE 99 U/L (38-126); ANION GAP 9 (5-19); ASPARTATE AMINO TRANSFERASE 20 U/L (14-36); BILIRUBIN,DIRECT 0.1 mg/dL (0.0-0.4); BILIRUBIN,TOTAL 0.4 mg/dL (0.2-1.3); BLOOD UREA NITROGEN 23 mg/dL (7-20); CALCIUM 9.9 mg/dL (8.4-10.2); CARBON DIOXIDE 22 mmol/L (22-30); CHLORIDE 108 mmol/L (98-107); GLUCOSE 117 mg/dL (75-110); TOTAL PROTEIN 8.2 g/dL (6.3-8.2)
== END 2019-08-06 20:37 | disposition left against medical advice (07) ==
LOC: ER 15:48
DX: G43.909 Migraine, unspecified, not intractable, without status migrainosus (principal); F17.200 Nicotine dependence, unspecified, uncomplicated; R11.2 Nausea with vomiting, unspecified; R05 Cough; F41.9 Anxiety disorder, unspecified; F32.9 Major depressive disorder, single episode, unspecified; Z79.899 Other long term (current) drug therapy; Z88.6 Allergy status to analgesic agent; Z88.5 Allergy status to narcotic agent; Z53.20 Procedure and treatment not carried out because of patient's decision for unspecified reasons
CPT/HCPCS: 99284; 96374; 96375; 36415; 83690; 85025; 80053; 71045; J1200; J1885; J2765; J7030; 96361

== ENCOUNTER 2019-08-21 04:46 | Emergency (ER) | payer OTHER ==
--- NOTE | 2019-08-21 06:47 | ER Document Report ---
ED General - General Chief Complaint: Chest Pain Stated Complaint: CHEST PAIN/NAUSEA/SHORTNESS OF BREATH Time Seen by Provider: 08/21/19 06:00 Primary Care Provider: LAURA TORRES MD [Primary Care Provider] - Follow up as needed Mode of Arrival: Ambulatory Information source: Patient Notes: 59-year-old woman presents to the emergency department with a 2-day history chest discomfort. States that her pain came on suddenly while sleeping on evening. She has continued to have pain since that time. She states that she is also having difficulty taking a deep breath because of the pain. She denies fever, cough, prior history of similar episodes. She is a every day smoker, history of anxiety, TRAVEL OUTSIDE OF THE [place] IN LAST 30 DAYS: No - Related Data Allergies/Adverse Reactions: codeine [Codeine] Allergy (Verified 02/02/19 10:59) Nausea, Emesis Past Medical History - Social History Smoking Status: Current Every Day Smoker Chew tobacco use (# tins/day): No Frequency of alcohol use: None Drug Abuse: None Family History: Reviewed & Not Pertinent, Malignancy Patient has homicidal ideation: No - Past Medical History Cardiac Medical History: Denies: Hx Coronary Artery Disease, Hx Heart Attack, Hx Hypertension Pulmonary Medical History: Denies: Hx Asthma, Hx Bronchitis, Hx COPD, Hx Pneumonia, Hx Tuberculosis Neurological Medical History: Reports: Hx Migraine. Denies: Hx Cerebrovascular Accident, Hx Seizures Renal/ Medical History: Denies: Hx Peritoneal Dialysis GI Medical History: Reports: Hx Gastroesophageal Reflux Disease Musculoskeletal Medical History: Denies Hx Arthritis Psychiatric Medical History: Reports: Hx Anxiety, Hx Depression Past Surgical History: Reports: Hx Orthopedic Surgery - left elbow x2, Right hip replacement, Other - Nephrostomy tube. Denies: Hx Hysterectomy - Immunizations Immunizations up to date: Yes Hx Diphtheria, Pertussis, Tetanus Vaccination: Yes Review of Systems - Review of Systems Notes: Constitutional: Negative for fever. HENT: Negative for sore throat. Eyes: Negative for visual changes. Cardiovascular: + Chest pain. Respiratory: Negative for shortness of breath. Gastrointestinal: Negative for abdominal pain, vomiting or diarrhea. Genitourinary: Negative for dysuria. Musculoskeletal: Negative for back pain. Skin: Negative for rash. Neurological: Negative for headaches, weakness or numbness. 10 point ROS negative except as marked above and in HPI. Physical Exam - Vital signs Vitals: Temp Pulse Resp BP Pulse Ox 97.3 F 87 22 H 138/74 H 94 08/21/19 05:26 08/21/19 05:26 08/21/19 05:26 08/21/19 05:26 08/21/19 05:26 - Notes Notes: PHYSICAL EXAMINATION: Physical Exam: General: Well-nourished well-developed 59-year-old woman tearful complaining of pain. HEENT: NC/AT, pupils equal round and reactive to light, MM moist,nares clear, oropharynx clear, airway patent Neck: supple, no adenopathy, no masses. Good range of motion Lungs: Splinting respirations with short inspiratory effort secondary to pain. CVS: Regular rate and rhythm no murmur gallop or rub Chest: + Anterior chest wall tenderness, tenderness in bilateral pectoralis mu scles. Abdomen: Soft, active, nontender, no masses, no hepatosplenomegaly Ext: No edema, clubbing or cyanosis. Neuro: Alert and responsive, moving all 4 extremities on command, cranial nerves intact, no focal findings Skin: Intact no open lesions, no rash Course - Re-evaluation Re-evalutation: 08/21/19 12:00 I have reviewed the patient's prior controlled substance use using a [place] substance abuse online service. She apparently has been receiving Xanax on a regular basis and intermittent doses of hydrocodone last prescription been 20 tablets May and intermittent codeine-based cough medications as well as Percocet. I explained to the patient that her cardiac work-up and evaluation for possible blood clot or large vessel disease has been a negative evaluation. She is given a prescription for Paron 5/325, 10 tablets, I have asked her to use the medication for what appears to be musculoskeletal chest wall pain. Patient is in agreement with this plan and is being discharged home. 08/21/19 12:07 - Vital Signs Vital signs: Temp Pulse Resp BP Pulse Ox 97.3 F 87 8 L 144/101 H 96 08/21/19 05:26 08/21/19 05:26 08/21/19 11:45 08/21/19 11:45 08/21/19 11:45 - Laboratory Result Diagrams: 08/21/19 05:41 08/21/19 05:41 Laboratory results interpreted by me: 08/21/19 08/21/19 05:41 05:41 WBC 14.1 H RDW 19.1 H Absolute Neuts (auto) 10.9 H Chloride 112 H Carbon Dioxide 20 L BUN 21 H Creatinine 1.35 H Est GFR ( Amer) 48 L Est GFR (MDRD) Non-Af 40 L - Diagnostic Test Radiology reviewed: Image reviewed, Reports reviewed Radiology results interpreted by me: 08/21/19 11:58 Chest x-ray: No acute cardiopulmonary disease CTA chest and abdomen: Motion related findings no obvious PE noted. - EKG Interpretation by Me EKG shows normal: Sinus rhythm - normal sinus rhythm, rate of 82, Nonspecific T wave abnormality in the anterior lateral leads, normal axis, biatrial enlargement, no acute ST or T wave. No prior EKG is available for comparison. Discharge - Discharge Clinical Impression: Non-cardiac chest pain, Musculoskeletal chest pain Condition: Good Disposition: HOME, SELF-CARE Instructions: Chest Wall Pain ([facility]) Additional Instructions: You were seen in the emergency department and evaluated for the chest pain which is given you have such a difficult time over the past 2 days. Appears to not be cardiac based and CT scan of the chest excludes large vessel disease or a large blood clot. You are given a prescription for medication for pain, please continue your medication and follow-up with your doctor as needed. HOME CARE INSTRUCTIONS & INFORMATION: Thank you for choosing us for your medical needs. We hope you're satisfied with the care you received. After you leave, you must properly care for your problem and, at the same time, observe its progress. Any condition can change. Some illnesses can change rapidly over hours or days. If your condition worsens, return to the Emergency Department or see your physician promptly. ABOUT YOUR X-RAYS AND EKG'S: If you had an EKG or X-rays taken, they have been read by the Emergency Physician. The X-rays and EKG's will also be read by a Radiologist or Spooler Operator within 24 hours. If discrepancies are noted, you will be notified by telephone. Please be certain the ED has a correct telephone number & address where you can be reached. Also, realize that some fractures or abnormalities do not show up on initial X-rays. If your symptoms continue, see your physician. ABOUT YOUR LABORATORY TEST: If you had laboratory tests, the results have been reviewed by the Emergency Physician. Some test results (for example cultures) may not be available for several days. You will be contacted if any test result shows you need additional treatment. Please be certain the ED has a correct telephone number and address where you can be reached. ABOUT YOUR MEDICATIONS: You will receive instructions on how to take your medicine on the prescription label you receive. Additional information may be provided by the Pharmacy. If you have questions afterwards, call the ED for clarification or further instructions. Some prescribed medications may cause drowsiness. Do not perform tasks such as driving a car or operating machinery without consulting your Pharmacist. If you feel you need a refill of pain medication, your condition will need re-evaluation. Please do not call for a refill of any medication. ABOUT YOUR SIGNATURE: Signature of this document acknowledges to followin. Understanding that you received emergency treatment and that you may be released before al medical problems are known or treated. Please be certain the ED has a correct phone number & address where you can be reached. 2. Acknowledgement that you will arrange for follow-up care as recommended. 3. Authorization for the Emergency Physician to provide information to your follow-up Physician in order to maximize your care. AT ANY TIME, IF YOUR SYMPTOMS CHANGE SIGNIFICANTLY OR WORSEN OR YOU DEVELOP NEW SYMPTOMS, RETURN TO THE EMERGENCY DEPARTMENT IMMEDIATELY FOR RE-EVALUATION. OUR GOAL IS TO PROVIDE EXCELLENT MEDICAL CARE! WE HOPE THAT WE HAVE MET YOUR EXPECTATIONS DURING YOUR EMERGENCY DEPARTMENT VISIT AND THAT YOU FEEL YOU HAVE RECEIVED EXCELLENT CARE! Prescriptions: Hydrocodone/Acetaminophen [Paron 5-325 mg Tablet] 1 tab PO Q6 PRN #10 tablet PRN Reason: Referrals: LAURA TORRES MD [Primary Care Provider] - Follow up as needed
[2019-08-21] MEDS ORDERED: FENTANYL CITRATE INJ/PF 100 MCG/2 ML AMPUL IV ONE (06:51)
[2019-08-21 07:52] LABS: ABSOLUTE BASOPHILS # (AUTO) 0.1 10^3/uL (0.0-0.2); ABSOLUTE EOSINOPHILS # (AUTO) 0.1 10^3/uL (0.0-0.6); ABSOLUTE LYMPHOCYTES (AUTO) 1.9 10^3/uL (0.5-4.7); ABSOLUTE MONOCYTES (AUTO) 1.1 10^3/uL (0.1-1.4); ABSOLUTE NEUT (AUTO) 10.9 10^3/uL (1.7-8.2); BASOPHILS % (AUTO) 0.6 % (0-2); HEMATOCRIT 44.6 % (36.0-47.0); HEMOGLOBIN 14.7 g/dL (12.0-15.5); LYMPHOCYTES % (AUTO) 13.3 % (13-45); MEAN CORPUSCULAR HEMOGLOBIN 31.1 pg (27.0-33.4); MEAN CORPUSCULAR VOLUME 94 fl (80-97); MONOCYTES % (AUTO) 7.9 % (3-13); PLATELET COUNT 332 10^3/uL (150-450); RED BLOOD COUNT 4.73 10^6/uL (3.72-5.28); RED CELL DISTRIBUTION WIDTH 19.1 % (11.5-14.0); SEGMENTED NEUTROPHILS % (AUTO) 77.2 % (42-78); TOTAL CELLS COUNTED % (AUTO) 100 %; WHITE BLOOD COUNT 14.1 10^3/uL (4.0-10.5)
[2019-08-21 07:59] LABS: ALBUMIN 4.6 g/dL (3.5-5.0); ALKALINE PHOSPHATASE 98 U/L (38-126); ANION GAP 8 (5-19); ASPARTATE AMINO TRANSFERASE 22 U/L (14-36); BILIRUBIN,DIRECT 0.1 mg/dL (0.0-0.4); BILIRUBIN,TOTAL 0.5 mg/dL (0.2-1.3); BLOOD UREA NITROGEN 21 mg/dL (7-20); CALCIUM 9.5 mg/dL (8.4-10.2); CARBON DIOXIDE 20 mmol/L (22-30); CHLORIDE 112 mmol/L (98-107); CREATINE KINASE 45 U/L (30-135); GLUCOSE 101 mg/dL (75-110); POTASSIUM 3.9 mmol/L (3.6-5.0); TOTAL PROTEIN 7.9 g/dL (6.3-8.2)
[2019-08-21 08:11] LABS: CREATINE KINASE MB 0.43 ng/mL (<4.55); TROPONIN I < 0.012 ng/mL
--- NOTE | 2019-08-21 08:38 | RADIOLOGY REPORT (SQ) ---
EXAM DESCRIPTION: CHEST SINGLE VIEW IMAGES COMPLETED DATE/TIME: 08/21/2019 8:04 am REASON FOR STUDY: chest Pain COMPARISON: AP view of the chest from 08/06/2019. EXAM PARAMETERS: NUMBER OF VIEWS: One view. TECHNIQUE: An AP view of the chest was obtained. RADIATION DOSE: NA LIMITATIONS: None. FINDINGS: LUNGS AND PLEURA: Unchanged bilateral basilar predominant interstitial opacities. There i s no acute consolidation, sizeable pleural effusion or pneumothorax. MEDIASTINUM AND HILAR STRUCTURES: No mediastinal or hilar contour abnormality. HEART AND VASCULAR STRUCTURES: The cardiac silhouette and pulmonary vasculature are within normal fair its. BONES: No acute findings. HARDWARE: None in the chest. OTHER: No other finding. IMPRESSION: No acute cardiopulmonary process. TECHNICAL DOCUMENTATION: JOB ID: [id number] 2010 [employer]- All Rights Reserved Reading location - IP/workstation name: [email or web address]
[2019-08-21] MEDS ORDERED: NORMAL SALINE 1000 ML 1,000 ML IV ONE (08:41)
[2019-08-21] MEDS ORDERED: LORAZEPAM INJ 2 MG/1 ML VIAL IV ONE (08:42)
[2019-08-21] MEDS ORDERED: HYDROMORPHONE HCL INJ/PF 2 MG/ML AMPULE IV ONE (08:45)
--- NOTE | 2019-08-21 10:37 | RADIOLOGY REPORT (SQ) ---
EXAM DESCRIPTION: CTA CHEST IMAGES COMPLETED DATE/TIME: 08/21/2019 9:57 am REASON FOR STUDY: Chest Pain COMPARISON: CT of the chest with contrast from 11/19/2012 TECHNIQUE: CT scan of the chest performed using helical scanning technique with dynamic intravenous contrast injection. Images reviewed with lung, soft tissue and bone windows. Reconstructed coronal and sagittal MPR images reviewed. Additional 3 dimensional post-processing performed to develop Maximal Intensity Projection images (IA P). All images stored on PACS. All CT scanners at this facility use dose modulation, iterative reconstruction, and/or weight based d osing when appropriate to reduce radiation dose to as low as reasonably achievable (ALARA). [facility]: Dose Right [facility]: CareDose [facility]: Dose Right [facility]: Teradose 4D [facility]: [email or web address] CONTRAST TYPE AND DOSE: Contrast/concentration: Isovue 350.00 mmol/ml; Total Contrast Delivered: 53. 0 ml; Total Saline Delivered: 62.4 ml Contrast bolus optimized for the pulmonary arteries. RENAL FUNCTION: Creatinine 1.35 milligrams/deciliter. RADIATION DOSE: CT Rad equipment meets quality standard of care and radiation dose reduction techniq ues were employed. CTDIvol: 6.6 - 18.4 mGy. DLP: 690 mGy-cm. LIMITATIONS: Evaluation is limited due to respiratory motion artifact. FINDINGS: LUNGS AND PLEURA: The trachea and main bronchi are patent. There is mild to moderate uppe r lobe predominant centrilobular emphysema and mild diffuse bronchial wall thickening. There are sev eral ill-defined ground-glass nodular opacities that are nonspecific and could represent an atypical infection or inflammation - for reference refer to the opacity in the apical segment of the left lowe r lobe (image 58 of series 4) and the opacities in the right upper lobe (image 50 series 4). The pepe cification in the right middle lobe adjacent to the interlobar fissure (image 77 of series 4) is unch anged. There is no acute consolidation, ground-glass opacification, pleural effusion or pneumothorax . AORTA AND GREAT VESSELS: There is a variant 4 vessel arch with a direct origin of the left vertebral artery from the arch. There is no thoracic aortic dissection or aneurysm. HEART: No pericardial effusion. Mild atherosclerotic calcification of the coronary arteries PULMONARY ARTERIES: There is no central pulmonary embolus. Evaluation of the segmental and subsegmen tee branches of the pulmonary arteries is limited due to respiratory motion artifact. HILAR AND MEDIASTINAL STRUCTURES: Hiatal hernia. There is no adenopathy or mass HARDWARE: None in the chest. UPPER ABDOMEN: Asymmetric atrophy of the right kidney and chronic upper lobe or calcifications. THYROID AND OTHER SOFT TISSUES: No mass or adenopathy. BONES: No acute fracture or osseous lesion. 3D MIPS: Confirm above findings. OTHER: No other finding. IMPRESSION: 1. Limited CTA of the chest due to respiratory motion artifact. There is no central pul monary embolus. 2. Mild to moderate upper lobe predominant centrilobular emphysema and mild diffuse bronchial wall th ickening. The scattered ill-defined ground-glass nodular opacities - for reference refer to the opac ity in the apical segment of the left lower lobe (image 58 of series 4) and the opacities in the righ t upper lobe (image 50 series 4) - are nonspecific and could represent an atypical infection or infla mmation. 3. Hiatal hernia. COMMENT: Quality ID # [id number]: Final reports with documentation of one or more dose reduction techniques (e.g., Automated exposure control, adjustment of the mA and/or kV according to patient size, use of iterative reconstruction technique) TECHNICAL DOCUMENTATION: JOB ID: [id number] 2010 [email or web address]- All Rights Reserved Reading location - IP/workstation name: [email or web address]
[2019-08-21 12:28] VITALS: BP 130/76
--- NOTE | 2019-08-21 18:26 | EKG REPORT ---
SEVERITY:- ABNORMAL ECG - SINUS RHYTHM BIATRIAL ABNORMALITIES BORDERLINE T ABNORMALITIES, ANT-LAT LEADS : Confirmed by: Thomas Hutchinson MD 21-Aug-2019 18:25:25
== END 2019-08-21 12:27 | disposition home or self-care (01) ==
LOC: ER 04:46
DX: R07.89 Other chest pain (principal); R11.0 Nausea; R06.02 Shortness of breath; F17.200 Nicotine dependence, unspecified, uncomplicated; Z88.6 Allergy status to analgesic agent
CPT/HCPCS: 93005; 99285; 96361; 96374; 96375; 36415; 82553; 82550; 85025; 80053; 84484; 71045; 71275; 93010; J3010; J1170; J2060; J7030

== ENCOUNTER 2019-10-06 18:20 | Emergency (ER) | payer OTHER ==
--- NOTE | 2019-10-06 18:42 | ER Document Report ---
ED Medical Screen (RME) - General Chief Complaint: Abdominal Pain Stated Complaint: UPPER RIGHT QUADRANT PAIN Time Seen by Provider: 10/06/19 18:26 Primary Care Provider: LAURA TORRES MD [Primary Care Provider] - Follow up as needed TRAVEL OUTSIDE OF THE [place] IN LAST 30 DAYS: No - HPI Notes: 10/06/19 18:39 59-year-old female with a history of anxiety, depression, headaches and insomnia presents to the emergency room today with right upper quadrant abdominal pain for the last week. States pain is constant, states it is worse with palpation, reports she has had no appetite and felt sluggish. Patient also reports she is put on 30 pounds in the last 2 months which is been bothersome to her. Patient did take 2 Phenergan's prior to coming for her nausea, denies any vomiting diarrhea. Denies any chest pain shortness of breath. Has not seen a primary care provider for this issue. Denies any fevers or chills I have greeted and performed a rapid initial assessment of this patient. A comprehensive ED assessment and evaluation of the patient, analysis of test results and completion of the medical decision making process will be conducted by additional ED providers. PHYSICAL EXAMINATION: GENERAL: Well-appearing, well-nourished and in no acute distress. HEAD: Atraumatic, normocephalic. EYES: Pupils equal round extraocular movements intact, conjunctiva are normal. NECK: Normal range of motion CV: s1, s2 regular LUNGS: No respiratory distress abd: RUQ abd pain on palpation - Related Data Allergies/Adverse Reactions: codeine [Codeine] Allergy (Verified 02/02/19 10:59) Nausea, Emesis Home Medications: xanax, celexa, seroquel, fioricet Past Medical History - Social History Frequency of alcohol use: None Drug Abuse: None - Past Medical History Cardiac Medical History: Denies: Hx Coronary Artery Disease, Hx Heart Attack, Hx Hypertension Pulmonary Medical History: Denies: Hx Asthma, Hx Bronchitis, Hx COPD, Hx Pneumonia, Hx Tuberculosis Neurological Medical History: Reports: Hx Migraine. Denies: Hx Cerebrovascular Accident, Hx Seizures Renal/ Medical History: Denies: Hx Peritoneal Dialysis GI Medical History: Reports: Hx Gastroesophageal Reflux Disease Musculoskeltal Medical History: Denies Hx Arthritis Psychiatric Medical History: Reports: Hx Anxiety, Hx Depression Past Surgical History: Reports: Hx Orthopedic Surgery - left elbow x2, Right hip replacement, Other - Nephrostomy tube. Denies: Hx Hysterectomy - Immunizations Immunizations up to date: Yes Hx Diphtheria, Pertussis, Tetanus Vaccination: Yes Physical Exam - Vital signs Vitals: Temp Pulse Resp BP Pulse Ox 98.9 F 100 18 122/78 96 10/06/19 18:27 10/06/19 18:27 10/06/19 18:27 10/06/19 18:27 10/06/19 18:27 Course - Vital Signs Vital signs: Temp Pulse Resp BP Pulse Ox 98.9 F 100 18 122/78 96 10/06/19 18:27 10/06/19 18:27 10/06/19 18:27 10/06/19 18:27 10/06/19 18:27 Doctor's Discharge - Discharge Referrals: LAURA TORRES MD [Primary Care Provider] - Follow up as needed
[2019-10-06] MEDS ORDERED: HYDROCODONE/ACETAMINOPHEN 5-325 MG TABLET PO ONE (18:43)
[2019-10-06 19:12] LABS: ABSOLUTE BASOPHILS # (AUTO) 0.1 10^3/uL (0.0-0.2); ABSOLUTE EOSINOPHILS # (AUTO) 0.1 10^3/uL (0.0-0.6); ABSOLUTE LYMPHOCYTES (AUTO) 2.2 10^3/uL (0.5-4.7); ABSOLUTE MONOCYTES (AUTO) 1.1 10^3/uL (0.1-1.4); ABSOLUTE NEUT (AUTO) 7.7 10^3/uL (1.7-8.2); BASOPHILS % (AUTO) 0.8 % (0-2); HEMATOCRIT 43.7 % (36.0-47.0); HEMOGLOBIN 14.7 g/dL (12.0-15.5); LYMPHOCYTES % (AUTO) 19.4 % (13-45); MEAN CORPUSCULAR HEMOGLOBIN 31.2 pg (27.0-33.4); MEAN CORPUSCULAR HGB CONC 33.6 g/dL (32.0-36.0); MEAN CORPUSCULAR VOLUME 93 fl (80-97); PLATELET COUNT 308 10^3/uL (150-450); RED BLOOD COUNT 4.69 10^6/uL (3.72-5.28); RED CELL DISTRIBUTION WIDTH 18.4 % (11.5-14.0); SEGMENTED NEUTROPHILS % (AUTO) 68.8 % (42-78); TOTAL CELLS COUNTED % (AUTO) 100 %; WHITE BLOOD COUNT 11.2 10^3/uL (4.0-10.5)
[2019-10-06 19:20] LABS: APPEARANCE,URINE CLEAR; BILIRUBIN,URINE NEGATIVE (NEGATIVE); COLOR,URINE YELLOW; GLUCOSE, URINE NEGATIVE (NEGATIVE); KETONES,URINE 20 mg/dL (NEGATIVE); LEUKOCYTE ESTERASE,URINE NEGATIVE (NEGATIVE); NITRITE,URINE NEGATIVE (NEGATIVE); PROTEIN,URINE 100 mg/dL (NEGATIVE); URINE SPECIFIC GRAVITY 1.027
[2019-10-06] MEDS ORDERED: ACETAMINOPHEN 325 MG TABLET PO ONE (19:24)
[2019-10-06 19:30] LABS: ALBUMIN 4.8 g/dL (3.5-5.0); ALKALINE PHOSPHATASE 101 U/L (38-126); ANION GAP 10 (5-19); ASPARTATE AMINO TRANSFERASE 35 U/L (14-36); BILIRUBIN,DIRECT 0.4 mg/dL (0.0-0.4); BILIRUBIN,TOTAL 0.5 mg/dL (0.2-1.3); BLOOD UREA NITROGEN 21 mg/dL (7-20); CARBON DIOXIDE 21 mmol/L (22-30); CHLORIDE 110 mmol/L (98-107); GLUCOSE 121 mg/dL (75-110); POTASSIUM 3.9 mmol/L (3.6-5.0); TOTAL PROTEIN 8.2 g/dL (6.3-8.2)
--- NOTE | 2019-10-06 19:47 | RADIOLOGY REPORT (SQ) ---
EXAM DESCRIPTION: U/S ABDOMEN LIMITED W/O DOP IMAGES COMPLETED DATE/TIME: 10/06/2019 7:33 pm REASON FOR STUDY: RUQ abd pain with nausea x 1 w COMPARISON: None. TECHNIQUE: Dynamic and static grayscale images acquired of the abdomen and recorded on PACS. Additio nal selected color Doppler and spectral images recorded. LIMITATIONS: None. FINDINGS: PANCREAS: No masses. Visualized pancreatic duct normal caliber. LIVER: The liver measures 16.7 cm in length within the upper limits of normal for size. No masses. Echotexture normal. LIVER VASCULATURE: Normal directional flow of the main portal vein and hepatic veins. GALLBLADDER: No stones. The gallbladder wall measures 2.0 mm, normal wall thickness. No pericholecys tic fluid. ULTRASOUND-DETECTED KELLY'S SIGN: Negative. INTRAHEPATIC DUCTS AND COMMON DUCT: CBD measures 8.0 mm in diameter and is dilated. The intrahepatic ducts normal caliber. No filling defects. INFERIOR VENA CAVA: Normal flow. AORTA: No aneurysm. RIGHT KIDNEY: The right kidney is difficult to visualize sonographically. It appears to be atrophic and measures 7.6 cm x 2.3 cm. Diffuse marked increased echogenicity, these findings raise the quest ion of medical renal disease. No hydronephrosis. PERITONEAL AND RIGHT PLEURAL SPACE: No ascites or effusions. OTHER: No other significant findings. IMPRESSION: 1. Atrophic appearing right kidney. Diffuse marked increased echogenicity of the kidne y may be on the basis of underlying medical renal disease. 2. The common bile duct measures 7.0 mm in diameter and is dilated. No filling defect is noted sono graphically. Correlation suggested. TECHNICAL DOCUMENTATION: JOB ID: [id number] [employer]- All Rights Reserved Reading location - IP/workstation name: [facility] ER
[2019-10-06] MEDS ORDERED: NORMAL SALINE 1000 ML 1,000 ML IV ONE (23:12)
[2019-10-06] MEDS ORDERED: ONDANSETRON HCL INJ/PF 4 MG/2 ML SDV IV ONE (23:14)
[2019-10-06] MEDS ORDERED: FENTANYL CITRATE INJ/PF 100 MCG/2 ML AMPUL IV ONE (23:14)
--- NOTE | 2019-10-06 23:16 | ER Document Report ---
Entered by OVIDIO RAINEY SCRIBE 10/06/19 [id number] Acting as scribe for:ANNE LEON DO ED GI/ - General Chief Complaint: Abdominal Pain Stated Complaint: UPPER RIGHT QUADRANT PAIN Time Seen by Provider: 10/06/19 18:26 Primary Care Provider: LAURA TORRES MD [Primary Care Provider] - Follow up as needed DYLON PEGUERO MD [ACTIVE STAFF] - Follow up as needed Mode of Arrival: Ambulatory Information source: Patient Notes: This 59-year-old female patient presents to the emergency department today with complaints of right upper quadrant abdominal pain for the last week. Patient states her pain is exacerbated with deep breathing or laying on her right side. Patient has had some nausea without vomiting. Patient complains of GERD related pain as well as a decreased appetite. TRAVEL OUTSIDE OF THE [place] IN LAST 30 DAYS: No - Related Data Allergies/Adverse Reactions: codeine [Codeine] Allergy (Verified 02/02/19 10:59) Nausea, Emesis Home Medications: xanax, celexa, seroquel, fioricet Past Medical History - General Information source: Patient - Social History Smoking Status: Current Every Day Smoker Cigarette use (# per day): Yes - has smoked since high school Frequency of alcohol use: None Drug Abuse: None Lives with: Spouse/Significant other Family History: Reviewed & Not Pertinent, Malignancy Neurological Medical History: Reports: Hx Migraine Renal/ Medical History: Reports: Hx Kidney Stones GI Medical History: Reports: Hx Gastroesophageal Reflux Disease Psychiatric Medical History: Reports: Hx Anxiety, Hx Depression Past Surgical History: Reports: Hx Orthopedic Surgery - left elbow x2, Right hip replacement, Other - Nephrostomy tube - Immunizations Immunizations up to date: Yes Hx Diphtheria, Pertussis, Tetanus Vaccination: Yes Review of Systems - Review of Systems Constitutional: No symptoms reported EENT: No symptoms reported Cardiovascular: No symptoms reported Respiratory: No symptoms reported Gastrointestinal: See HPI, Abdominal pain, Nausea. denies: Vomiting Genitourinary: No symptoms reported Female Genitourinary: No symptoms reported Musculoskeletal: No symptoms reported Skin: No symptoms reported Hematologic/Lymphatic: No symptoms reported Neurological/Psychological: No symptoms reported -: Yes All other systems reviewed and negative Physical Exam - Vital signs Vitals: Temp Pulse Resp BP Pulse Ox 98.9 F 100 18 122/78 96 10/06/19 18:27 10/06/19 18:27 10/06/19 18:27 10/06/19 18:27 10/06/19 18:27 - Notes Notes: Physical Exam: General: Alert, appears older than stated age. HEENT: Normocephalic. Atraumatic. PERRL. Extraocular movements intact. Oropharynx clear. Neck: Supple. Non-tender. Respiratory: No respiratory distress. Clear and equal breath sounds bilaterally. Cardiovascular: Regular rate and rhythm. Abdominal: Right upper quadrant tenderness to palpation. No distension. Normal Bowel Sounds. Back: No gross abnormalities. Extremities: Moves all four extremities. Upper extremities: Normal inspection. Normal ROM. Lower extremities: Normal inspection. No edema. Normal ROM. Neurological: Normal cognition. AAOx4. Normal speech. Psychological: Normal affect. Normal Mood. Skin: Warm. Dry. Normal color. Course - Re-evaluation Re-evalutation: 10/07/19 01:03 MDM 59 year old female chronic smoker is here with epigastric and right upper quad pain. No fever or chills. Ct worrisome for duodenal process. Discussed this with her and follow up and she expressed understanding. EGD perhaps 6 years ago she tells me. We discussed smoking cessation and she expressed understanding. - Vital Signs Vital signs: Temp Pulse Resp BP Pulse Ox 99.2 F 80 16 151/72 H 96 10/06/19 22:53 10/06/19 22:53 10/06/19 22:53 10/06/19 22:53 10/06/19 22:53 - Laboratory Result Diagrams: 10/06/19 19:00 10/06/19 19:00 Laboratory results interpreted by me: 10/06/19 10/06/19 10/06/19 18:50 19:00 19:00 WBC 11.2 H RDW 18.4 H Chloride 110 H Carbon Dioxide 21 L BUN 21 H Creatinine 1.33 H Est GFR ( Amer) 49 L Est GFR (MDRD) Non-Af 41 L Glucose 121 H Urine Protein 100 H Urine Ketones 20 H Urine Urobilinogen 2.0 H - Diagnostic Test Radiology reviewed: Reports reviewed - EKG Interpretation by Me EKG shows normal: Sinus rhythm Rate: Normal Rhythm: NSR - NSR NL [place] [address] elevation or depression my interpretation. Discharge - Discharge Clinical Impression: Dyspepsia, Right upper quadrant abdominal pain, Tobacco abuse Condition: Stable Disposition: HOME, SELF-CARE Instructions: Abdominal Pain ([facility]), Antinausea Medication ([facility]), Pain Medication Injection ([facility]), Stop Smoking ([facility]) Additional Instructions: Call Dr. Peguero later today in follow up. Stop smoking. See your doctor in follow up. Call your primary doctor in follow up today also. Clear liquids for 24 hours. Your medicine was sent to [facility] in [place]. Prescriptions: Sucralfate [Carafate Susp 1 Gm/10 Ml Udcup] 1 gm PO QID 10 Days #1 bottle Ondansetron [Zofran Odt 4 mg Tablet] 1 - 2 tab PO Q4H PRN #15 tab.rapdis PRN Reason: For Nausea/Vomiting Referrals: LAURA TORRES MD [Primary Care Provider] - Follow up as needed DYLON PEGUERO MD [ACTIVE STAFF] - Follow up as needed I personally performed the services described in the documentation, reviewed and edited the documentation which was dictated to the scribe in my presence, and it accurately records my words and actions.
[2019-10-07] MEDS ORDERED: ALPRAZOLAM 0.5 MG TABLET PO ONE (00:35)
--- NOTE | 2019-10-07 00:54 | RADIOLOGY REPORT (SQ) ---
CLINICAL INDICATION: RUQ pain. CREAT 1.33. . TECHNIQUE: Contrast enhanced spiral axial CT imaging was obtained of the abdomen and pelvis with multiplanar reconstructions. This exam was performed according to our departmental dose-optimization program, which includes automated exposure control, adjustment of the mA and/or kV according to patient size and/or use of iterative reconstruction techniques. Additional delayed phase imaging COMPARISON: February 02, 2019. CORRELATION: None. FINDINGS: Abdomen: The lung bases are grossly clear. The heart is top normal but stable. Small hiatal hernia. No evidence of pleural or pericardial fluid. The liver is of normal size contour and attenuation. The gallbladder is physiologically distended.. The pancreas is unremarkable. The spleen is unremarkable. The adrenals are unremarkable. The kidneys again demonstrate atrophy of the right kidney. Nonobstructing nephrolithiasis. No obstructive uropathy hydronephrosis hydroureter or adverse change.. There is no evidence of free air. No free fluid. No bulky adenopathy. Abdominal aorta is nonaneurysmal. Pelvis: The bowel is nonobstructed. The bowel is unopacified with oral contrast. Pelvic contents are unremarkable. The appendix is normal. Significant inflammatory changes involving the duodenum extension gastroduodenal junction through third portion of duodenum. These appear to be progressive when compared to prior. No convincing evidence of extraluminal air or fluid. 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 Postsurgical change right hip.. IMPRESSION: Inflammatory changes involving the duodenum extension gastroduodenal junction through third portion. This is rather focal. This appears to be adverse change from prior.. Gastroenterology follow-up is advised
[2019-10-07] MEDS ORDERED: PANTOPRAZOLE SODIUM 40 MG VIAL IV ONE (00:55)
[2019-10-07] MEDS ORDERED: ONDANSETRON HCL INJ/PF 4 MG/2 ML SDV IV ONE (01:25)
[2019-10-07] MEDS ORDERED: MORPHINE SULFATE 10 MG/ML INJ IV ONE (01:25)
[2019-10-07 02:18] VITALS: BP 129/53
--- NOTE | 2019-10-07 10:27 | EKG REPORT ---
SEVERITY:- NORMAL ECG - SINUS RHYTHM : Confirmed by: Rosa Maria Amado MD 07-Oct-2019 10:26:14
== END 2019-10-07 02:05 | disposition home or self-care (01) ==
LOC: ER 18:20
DX: R10.13 Epigastric pain (principal); R10.10 Upper abdominal pain, unspecified; R10.11 Right upper quadrant pain; R11.0 Nausea; K21.9 Gastro-esophageal reflux disease without esophagitis; R63.0 Anorexia; F17.210 Nicotine dependence, cigarettes, uncomplicated; Z79.899 Other long term (current) drug therapy; Z88.8 Allergy status to other drugs, medicaments and biological substances
CPT/HCPCS: 96376; 99285; 96372; 96361; 96374; 96375; 36415; 83605; 83690; 85025; 80053; 81001; 84484; 76705; 74177; 93005; 93010; J3010; J2270; C9113; J2405 ×2; J7030

== ENCOUNTER → 2019-10-21 | Outpatient (CLI) | payer OTHER ==
--- NOTE | 2019-10-21 14:42 | RADIOLOGY REPORT (SQ) ---
EXAM DESCRIPTION: NM HIDA SCAN WITH CCK IMAGES COMPLETED DATE/TIME: 10/21/2019 2:07 pm REASON FOR STUDY: (R10.11)RIGHT UPPER QUADRANT PAIN R10.11 RIGHT UPPER QUADRANT PAIN COMPARISON: None. RADIONUCLIDE AND DOSE: DOSAGE RADIONUCLIDE: 5 millicuries Tc99m Mebrofenin. DOSAGE CCK: 1.4 micrograms. DOSAGE MORPHINE: Not required. The route of agent administration: Intravenous TECHNIQUE: Serial imaging right upper quadrant up to 60 minutes following injection of radionuclide. CCK injected after gallbladder visualized. LIMITATIONS: None. FINDINGS: LIVER: Normal visualization without areas of photopenia. INTRAHEPATIC BILE DUCTS: Normal size and no delay in visualization. COMMON BILE DUCT: Normal without dilatation. GALLBLADDER: Normal visualization. Calculated ejection fraction of 43%. Normal range is greater th an 35%. PHYSICAL RESPONSE: Patients presenting complaint was reproduced. OTHER: No other significant finding. IMPRESSION: Normal gallbladder ejection fraction. Patient's symptoms were reproduced with CCK admin istration. TECHNICAL DOCUMENTATION: JOB ID: [id number] 2010 [employer]- All Rights Reserved Reading location - IP/workstation name: [email or web address]
== END ==
LOC: RAD 12:18
PROVIDERS: ATTEND Family Medicine
DX: R10.11 Right upper quadrant pain (principal)
CPT/HCPCS: 78227; J2805; A9537; Q9969